=== PATIENT | female | born 1945 | race Caucasian/White ===

== ENCOUNTER 2020-04-25 12:00 | Outpatient (RCR) | payer MEDICARE, SELFPAY ==
[2013-03-23 17:10] VITALS: BMI 24.1
[2020-04-25] MEDS: COVID-19 VACC, MRNA(PFIZER)/PF 30 MCG/0.3 ML SYRINGE IM (13:24)
[2020-05-16] MEDS: COVID-19 VACC, MRNA(PFIZER)/PF 30 MCG/0.3 ML SYRINGE IM (13:41)
== END 2020-07-25 23:59 ==
LOC: IMMUN 12:00
PROVIDERS: Referring Provider Family Medicine; Visit Provider Family Medicine
DX: Z23 Encounter for immunization (principal)
CPT/HCPCS: 0001A; 0002A; 91300

== ENCOUNTER 2021-05-18 10:36 | Outpatient (CLI) | payer MEDICARE, SELFPAY ==
[2021-05-18 10:43] LABS: Bacteria 0 SEEN /hpf (None Seen); Mucous, Urine 0 SEEN /hpf (<or=2+); Red Blood Cells-Urine 0 SEEN /hpf (0-5); Squamous Epithelial Cells - UA 0 SEEN /hpf (5-10); White Blood Cells 0 SEEN /hpf (0-5)
[2021-05-18 12:11] LABS: Color, Urine Yellow (Yellow); Glucose, Dipstick Normal (Normal); Ketone-Dipstick Negative (Negative); Leukocyte Esterase-Dipstick 25 /ul (Negative); Nitrite-Dipstick Negative (Negative); Occult Blood-Urine Negative /ul (Negative); Protein-Dipstick Negative (Negative); Urine Bilirubin Dipstick Negative (Negative); Urine Clarity Clear (Clear); Urine Urobilinogen Normal (Normal)
[2021-05-18 12:18] LABS: Absolute Lymphocyte Count 0.72 X10^3/uL (0.83-4.51); Absolute Neutrophil Count 2.3 X10^3/uL (2.0-7.7); Basophil# 0.07 X10^3/uL; Eosinophil# 0.12 X10^3/uL; Eosinophils% 3.4 % (0-5); Hematocrit 42.9 % (37-47); Hemoglobin 14.2 g/dL (12.0-15.0); Lymphocyte # 0.72 X10^3/ul (0.83-4.51); Lymphocyte % 20.3 % (19-41); Mean Corp Hgb Conc 33.1 g/dL (32-36); Mean Corpuscular Hgb 31.8 pg (27.0-32.0); Mean Platelet Vol. 10.5 fl (6.2-12.0); Monocyte# 0.35 X10^3/uL; Monocyte% 9.9 % (0-10); NRBC Flagged by Analyzer 0 % (0-5); Neutrophil # 2.27 X10^3/uL (2.7-7.7); Neutrophil % 64.1 % (47-70); Platelet Count 246 K/mm3 (150-450); RBC Distribution Width CV 12.6 % (11.6-14.6); Red Blood Count 4.47 M/mm3 (4.2-5.4); White Blood Count 3.5 K/mm3 (4.4-11.0)
[2021-05-18 13:02] LABS: ALB/GLOB Ratio 1.1 RATIO (0.9-2.4); AST(SGOT) 26 U/L (15-37); Alanine Aminotransfer ALT/SGPT 36 U/L (13-56); Albumin, Serum 3.9 g/dL (3.2-5.0); Alkaline Phosphatase 162 U/L (45-117); Anion Gap 8 (5-15); BUN 18 mg/dL (7-18); BUN/Creat Ratio 25.8 RATIO (10-20); Calcium,Total 9.6 mg/dL (8.5-10.1); Chloride 102 mmol/L (98-107); EST Glomerular Filtration Rate 87 mL/min (>60); Est Glom Filt Rate - Afr Amer 105 mL/min (>60); Globulin 3.5 g/dL (2.2-4.2); Glucose 102 mg/dL (74-106); Magnesium 2.2 mg/dL (1.6-2.6); Potassium 3.7 mmol/L (3.5-5.1); Protein, Total 7.4 g/dL (6.4-8.2); Sodium Level 135 mmol/L (136-145); Thyroid Stim Hormone (TSH) 0.87 uIU/mL (0.358-3.74)
[2021-05-22 11:14] LABS: GGTP 308 U/L (5-55)
== END 2021-05-18 23:59 | disposition home or self-care (01) ==
LOC: MFPLAB 10:40
PROVIDERS: PCP Family Medicine; Referring Provider Family Medicine; Visit Provider Family Medicine
DX: R03.0 Elevated blood-pressure reading, without diagnosis of hypertension (principal); F41.9 Anxiety disorder, unspecified
CPT/HCPCS: 36415; 80053; 81001; 82977; 83735; 84443; 85025

== ENCOUNTER 2021-05-25 13:09 | Outpatient (CLI) | payer MEDICARE, SELFPAY ==
--- NOTE | 2021-05-25 13:12 | BI_ITS ---
MAMMOGRAPHY - BILATERAL SCREENING REASON FOR EXAM: Female, 75 years old. Routine annual screening examination. PERTINENT HISTORY: Non-contributory. TECHNIQUE: Digital bilateral breast sandra (3D mammographic acquisition) in the CC and MLO projections. 2-D mediolateral oblique (MLO) and craniocaudad (CC) views of both breasts were obtained. CAD: Full Field Digital Mammography with Computer Added Detection was performed. COMPARISON: None. Baseline examination. FINDINGS: Breast Composition: The breasts are heterogeneously dense, which may obscure small masses. There are no dominant masses or suspicious calcifications. No other significant abnormalities are identified. BI/SCRN MAMM (CAD)W/SANDRA BILAT IMPRESSION: Negative screening mammogram. Yearly followup mammogram recommended. (A) ASSESSMENT CATEGORY: BIRADS Category 1: Negative. A letter regarding these results will be sent to the patient by the facility within 30 days. Approximately 10% of breast cancers are not detected by mammography. A normal mammogram should not delay biopsy of a clinically suspicious abnormality. [id number] Electronically Signed: Aristeo Herring MD at 14:46 EDT ,
== END 2021-05-25 23:59 | disposition home or self-care (01) ==
LOC: OPBI 13:10
PROVIDERS: PCP Family Medicine; Visit Provider Family Medicine
DX: Z12.31 Encounter for screening mammogram for malignant neoplasm of breast (principal)
CPT/HCPCS: 77063; 77067

== ENCOUNTER 2021-06-01 09:33 | Outpatient (CLI) | payer MEDICARE, SELFPAY ==
--- NOTE | 2021-06-01 09:39 | US_ITS ---
STUDY: ABDOMINAL ULTRASOUND - RIGHT UPPER QUADRANT REASON FOR VISIT: Female, 75 years old ABNORMAL LEVELS OF SERUM ENZYMES TECHNIQUE: Ultrasound evaluation of the right upper quadrant was performed with real-time and static iraheta-scale imaging. TECHNICAL QUALITY: Adequate. COMPARISON: None. FINDINGS: Liver: The liver measures 13.8 cm. There is coarsened echogenicity of the liver. The bile ducts are within normal limits. There is hepatic color flow. The direction of portal flow is hepatopetal. There is a 3 cm x 4 cm x 2.8 cm cyst in the left lobe of the liver. Gallbladder: Normal distended gallbladder. The gallbladder wall measures 1.8 mm. There is a negative sonographic Carmona''s sign. There is no pericholecystic fluid. There are no gallstones. Common Bile Duct (C.B.D.): The common bile duct measures 2.6 mm. Pancreas: Normal size of the head, body and tail of the pancreas. There is increased echogenicity of the pancreas. There is no demonstrated pancreatic mass or cyst. Right Kidney: Normal size of the right kidney. The right kidney measures 9.3 cm x 5.1 cm x 3.8 cm. Normal renal cortex. The right cortex measures 1 cm. There is no demonstrated renal mass or cyst. There is no right hydronephrosis. US/Abdomen Limited IMPRESSION: Coarsened echotexture of the liver. This may represent a mild degree of fatty infiltration. Electronically Signed: Aristeo Herring MD at 11:18 EDT ,
== END 2021-06-01 23:59 | disposition home or self-care (01) ==
LOC: US 09:38
PROVIDERS: PCP Family Medicine; Referring Provider Family Medicine; Visit Provider Family Medicine
DX: R74.8 Abnormal levels of other serum enzymes (principal)
CPT/HCPCS: 76705

== ENCOUNTER 2021-07-03 05:44 | Day surgery (SDC) | payer MEDICARE, SELFPAY ==
[2021-07-03] VITALS (8 sets, daily range): BP systolic 122–175; BP diastolic 64–85; PULSE 65–76; RESP 16; TEMP 36.4–36.9; O2SAT 99–100; BMI 22.3
--- NOTE | 2021-07-03 06:29 | HP.PCM_ITS ---
HPI - General HPI Narrative SABA SALAZAR, is a 75 F who presents who presents via open access for screening colonoscopy. She has not had a previous one. She denies any acute bowel problems. No abdominal pain. No bright red blood per rectum or melena. She otherwise enjoys good health. [facility] Medical History (Updated 06/29/21 @ 15:03 by Nayeli Gonzalez) Alcohol use Arthritis Fatty liver Hx of fracture of wrist Non-smoker Wears glasses Home Medications calcium 1,200 mg PO DAILY 06/29/21 [History Last Taken Unknown] sertraline 50 mg PO QHS 06/29/21 [History Last Taken Unknown] Allergy/AdvReac Type Severity Reaction Status Date / Time No Known Allergies Allergy Verified 06/29/21 14:57 Surgical History (Updated 06/29/21 @ 15:03 by Nayeli Gonzalez) History of Social History Smoking Status: Never smoker ROS Constitutional Constitutional: Reports systems reviewed and no addt'l complaints, except as documented Cardiovascular Cardiovascular: Denies chest pain Respiratory/Chest Respiratory/Chest: Denies shortness of breath at rest Gastrointestinal Gastrointestinal: Denies abdominal pain, change in bowel habits, hematochezia or melena Physical Exam Const alert, oriented x3 and no apparent distress General Appearance: cooperative and comfortable HEENT HEENT Narrative: Left pupil dilated versus the right. Secondary to previous shingles Eyes General Eye: normal appearance of both eyes Neck General: normal visual inspection Chest inspection of chest normal Resp Effort and Inspection: able to speak in complete sentences and symmetric chest movement Auscultation: clear to auscultation bilaterally Cardio regular rate and regular rhythm GI soft to palpation, non-tender and non-distended Extremity no calf tenderness Neuro oriented x3 Psych thought process normal Assessment & Plan Assessment/Plan (1) Encounter for screening for malignant neoplasm of colon: PLAN: 75-year-old female presents for screening colonoscopy. She has not had a previous one. She presents via open access today. She is aware of the technique, benefit, risk, alternatives. She has had an opportunity to ask and have questions answered. We will proceed as noted. Marc Damico M.D., F.A.C.S.
[2021-07-03] MEDS: Lactated Ringers 1,000 ML 15 ML IV (06:35)
[2021-07-03] MEDS: Midazolam 5 MG/ML Syringe (07:15)
--- NOTE | 2021-07-03 07:38 | OP.COLON_ITS ---
Patient Name: Shirley See Procedure Date: 07/03/2021 7:03 AM Date of : 1945 Age: 75 Procedure: Colonoscopy Indications: Screening for colorectal malignant neoplasm Providers: Marc Damico MD Medicines: Midazolam 3 mg IV, Meperidine 100 mg IV Patient Profile: Last Colonoscopy: none. The patient's first colonoscopy is today. Complications: No immediate complications. Procedure: Pre-Anesthesia Assessment: - Prior to the procedure, a History and Physical was performed, and patient medications and allergies were reviewed. The patient's tolerance of previous anesthesia was also reviewed. The risks and benefits of the procedure and the sedation options and risks were discussed with the patient. All questions were answered, and informed consent was obtained. Prior Anticoagulants: The patient has taken no previous anticoagulant or antiplatelet agents. ASA Grade Assessment: II - A patient with mild systemic disease. After reviewing the risks and benefits, the patient was deemed in satisfactory condition to undergo the procedure. After I obtained informed consent, the scope was passed under direct vision. Throughout the procedure, the patient's blood pressure, pulse, and oxygen saturations were monitored continuously. The colonoscope was introduced through the anus and advanced to the cecum, identified by appendiceal orifice and ileocecal valve. The colonoscopy was performed without difficulty. The patient tolerated the procedure well. The quality of the bowel preparation was good. The ileocecal valve and the appendiceal orifice were photographed. Moderate Sedation: Moderate (conscious) sedation was personally administered by the endoscopist. The following parameters were monitored: oxygen saturation, heart rate, blood pressure, and response to care. Total physician intraservice time was 15 minutes. Scope In: 7:17:09 AM Scope Withdrawal Time 0 hours 9 minutes 0 seconds Scope Out: 7:32:51 AM Total Procedure Duration Time 0 hours 15 minutes 42 seconds Findings: The digital rectal exam findings include non-thrombosed external hemorrhoids, non-thrombosed internal hemorrhoids and internal hemorrhoids that prolapse with straining, but spontaneously regress to the resting position (Grade II). Multiple diverticula were found in the sigmoid colon and descending colon. The exam was otherwise without abnormality. Impression: - Non-thrombosed external hemorrhoids, non-thrombosed internal hemorrhoids and internal hemorrhoids that prolapse with straining, but spontaneously regress to the resting position (Grade II) found on digital rectal exam. - Diverticulosis in the sigmoid colon and in the descending colon. - The examination was otherwise normal. - No specimens collected. Recommendation: - Discharge patient to home. - Resume previous diet. - Continue present medications. - Repeat colonoscopy is not recommended due to current age (66 years or older) for screening purposes. Procedure Code(s): --- Professional --- 91530, Colonoscopy, flexible; diagnostic, including collection of specimen(s) by brushing or washing, when performed (separate procedure) 60488, 59, Moderate sedation services provided by the same physician or other qualified health acute care assistant performing the diagnostic or therapeutic service that the sedation supports, requiring the presence of an independent trained observer to assist in the monitoring of the patient's level of consciousness and physiological status; initial 15 minutes of intraservice time, patient age 5 years or older Diagnosis Code(s): --- Professional --- Z12.11, Encounter for screening for malignant neoplasm of colon K64.1, Second degree hemorrhoids K64.4, Residual hemorrhoidal skin tags K57.30, Diverticulosis of large intestine without perforation or abscess without bleeding CPT copyright 2017 [employer]. All rights reserved. The codes documented in this report are preliminary and upon dental hygiene teacher review may be revised to meet current compliance requirements. Marc Damico MD 07/03/2021 7:38:01 AM This report has been signed electronically. Number of Addenda: 0 Note Initiated On: 07/03/2021 7:03 AM
--- NOTE | 2021-07-03 07:38 | OP.CCLET_ITS ---
07/03/2021 Slade Tristan [address] [place] [address] Re : Colonoscopy procedure for Shirley See Dear Dr. Tristan This procedure was performed on Saturday, July 03, 2021. My impressions and recommendations are as follows: Impressions : - Non-thrombosed external hemorrhoids, non-thrombosed internal hemorrhoids and internal hemorrhoids that prolapse with straining, but spontaneously regress to the resting position (Grade II) found on digital rectal exam. - Diverticulosis in the sigmoid colon and in the descending colon. - The examination was otherwise normal. - No specimens collected. Recommendations : - Discharge patient to home. - Resume previous diet. - Continue present medications. - Repeat colonoscopy is not recommended due to current age (66 years or older) for screening purposes. My findings are described in the full procedure note, which is enclosed. If I can be of further assistance, please feel free to contact me at Doctor phone number(s): Work: . Sincerely, Marc Damico MD 07/03/2021 7:38:01 AM This report has been signed electronically.
== END 2021-07-03 08:18 | disposition home or self-care (01) ==
LOC: EN 05:45 → AC 05:46
PROVIDERS: PCP Family Medicine; Referring Provider Family Medicine; Visit Provider Surgery
PROC: 0DJD8ZZ Inspection of Lower Intestinal Tract, Via Natural or Artificial Opening Endoscopic (ICD-10-PCS; CPT 45378; principal; 2021-07-03 06:55)
DX: Z12.11 Encounter for screening for malignant neoplasm of colon (principal); K57.30 Diverticulosis of large intestine without perforation or abscess without bleeding; K64.4 Residual hemorrhoidal skin tags; K64.1 Second degree hemorrhoids; Z79.899 Other long term (current) drug therapy
CPT/HCPCS: 45378; 99152; 99153; J7120

== ENCOUNTER → 2021-09-06 | Outpatient (CLI) | payer MEDICARE, SELFPAY ==
[2021-09-06 12:15] LABS: Absolute Neutrophil Count 2.5 X10^3/uL (2.0-7.7); Basophil# 0.03 X10^3/uL; Basophil% 0.7 % (0-1); Eosinophil# 0.13 X10^3/uL; Eosinophils% 3.2 % (0-5); Hematocrit 42.5 % (37-47); Hemoglobin 14.1 g/dL (12.0-15.0); Lymphocyte % 22.4 % (19-41); Mean Corp Hgb Conc 33.2 g/dL (32-36); Mean Corpuscular Hgb 31.5 pg (27.0-32.0); Mean Corpuscular Volume 95.1 fL (81-99); Mean Platelet Vol. 10.6 fl (6.2-12.0); Monocyte# 0.45 X10^3/uL; Monocyte% 11.2 % (0-10); NRBC Flagged by Analyzer 0 % (0-5); Neutrophil % 62.3 % (47-70); Platelet Count 230 K/mm3 (150-450); RBC Distribution Width CV 13.2 % (11.6-14.6); RBC Distribution Width SD 46.8 fl (35.1-43.9); Red Blood Count 4.47 M/mm3 (4.2-5.4)
[2021-09-06 12:38] LABS: ALB/GLOB Ratio 1.1 RATIO (0.9-2.4); AST(SGOT) 78 U/L (15-37); Alanine Aminotransfer ALT/SGPT 99 U/L (13-56); Albumin, Serum 3.8 g/dL (3.2-5.0); Alkaline Phosphatase 233 U/L (45-117); Anion Gap 6 (5-15); BUN 22 mg/dL (7-18); BUN/Creat Ratio 31.8 RATIO (10-20); Calcium,Total 9.5 mg/dL (8.5-10.1); Chloride 99 mmol/L (98-107); Creatinine, Serum 0.69 mg/dL (0.55-1.02); EST Glomerular Filtration Rate 88 mL/min (>60); Est Glom Filt Rate - Afr Amer 106 mL/min (>60); GGTP 561 U/L (5-55); Globulin 3.5 g/dL (2.2-4.2); Glucose 97 mg/dL (74-106); Magnesium 2.2 mg/dL (1.6-2.6); Potassium 4.4 mmol/L (3.5-5.1); Protein, Total 7.3 g/dL (6.4-8.2); Sodium Level 133 mmol/L (136-145)
== END | disposition home or self-care (01) ==
LOC: MFPLAB 10:53
PROVIDERS: PCP Family Medicine; Referring Provider Family Medicine; Visit Provider Family Medicine
DX: R03.0 Elevated blood-pressure reading, without diagnosis of hypertension (principal); R74.8 Abnormal levels of other serum enzymes
CPT/HCPCS: 36415; 80053; 81001; 82977; 83735; 85025

== ENCOUNTER → 2021-09-12 | Outpatient (CLI) | payer MEDICARE, SELFPAY ==
[2021-09-12 15:32] LABS: Ferritin 113 ng/mL (8-252); Thyroid Stim Hormone (TSH) 0.77 uIU/mL (0.358-3.74)
[2021-09-14 14:09] LABS: ANTINUCLEAR ANTIBODIES DIRECT Negative (Negative)
[2021-09-14 16:19] LABS: Alpha Antitrypsin Serum 135 mg/dL (101-187)
[2021-09-15 07:08] LABS: Ceruloplasmin 25.5 mg/dL (19.0-39.0)
[2021-09-17 10:45] LABS: Anti-Smooth Muscle ABS 6 Units (0-19); Copper, Serum or Plasma 110 ug/dL (80-158)
== END | disposition home or self-care (01) ==
LOC: MFPLAB 11:47
PROVIDERS: PCP Family Medicine; Referring Provider Family Medicine; Visit Provider Family Medicine
DX: R79.89 Other specified abnormal findings of blood chemistry (principal); F41.9 Anxiety disorder, unspecified
CPT/HCPCS: 36415; 82103; 82390; 82525; 82728; 83516; 84443; 86038

== ENCOUNTER → 2021-12-04 | Outpatient (CLI) | payer MEDICARE, SELFPAY ==
[2021-12-04 12:52] LABS: Absolute Lymphocyte Count 0.82 X10^3/uL (0.83-4.51); Absolute Neutrophil Count 2.9 X10^3/uL (2.0-7.7); Basophil# 0.05 X10^3/uL; Basophil% 1.2 % (0-1); Eosinophil# 0.07 X10^3/uL; Eosinophils% 1.7 % (0-5); Hematocrit 40.9 % (37-47); Lymphocyte # 0.82 X10^3/ul (0.83-4.51); Lymphocyte % 19.4 % (19-41); Mean Corp Hgb Conc 31.8 g/dL (32-36); Mean Corpuscular Hgb 31.2 pg (27.0-32.0); Mean Corpuscular Volume 98.1 fL (81-99); Mean Platelet Vol. 11.1 fl (6.2-12.0); Monocyte# 0.43 X10^3/uL; Monocyte% 10.2 % (0-10); NRBC Flagged by Analyzer 0 % (0-5); Neutrophil # 2.85 X10^3/uL (2.7-7.7); Neutrophil % 67.3 % (47-70); Platelet Count 226 K/mm3 (150-450); RBC Distribution Width CV 13.1 % (11.6-14.6); RBC Distribution Width SD 46.6 fl (35.1-43.9); Red Blood Count 4.17 M/mm3 (4.2-5.4); White Blood Count 4.2 K/mm3 (4.4-11.0)
[2021-12-04 13:19] LABS: ALB/GLOB Ratio 1.1 RATIO (0.9-2.4); AST(SGOT) 36 U/L (15-37); Alanine Aminotransfer ALT/SGPT 38 U/L (13-56); Albumin, Serum 3.7 g/dL (3.2-5.0); Alkaline Phosphatase 227 U/L (45-117); Anion Gap 6 (5-15); BUN 23 mg/dL (7-18); BUN/Creat Ratio 34.4 RATIO (10-20); Calcium,Total 9.6 mg/dL (8.5-10.1); Chloride 102 mmol/L (98-107); Creatinine, Serum 0.67 mg/dL (0.55-1.02); EST Glomerular Filtration Rate 92 mL/min (>60); Est Glom Filt Rate - Afr Amer 111 mL/min (>60); Globulin 3.3 g/dL (2.2-4.2); Glucose 92 mg/dL (74-106); Potassium 4.4 mmol/L (3.5-5.1); Sodium Level 136 mmol/L (136-145)
[2021-12-05 11:34] LABS: GGTP 573 U/L (5-55)
== END | disposition home or self-care (01) ==
LOC: MFPLAB 11:14
PROVIDERS: PCP Family Medicine; Referring Provider Family Medicine; Visit Provider Family Medicine
DX: R03.0 Elevated blood-pressure reading, without diagnosis of hypertension (principal); R74.8 Abnormal levels of other serum enzymes; R73.09 Other abnormal glucose
CPT/HCPCS: 36415; 80053; 82977; 85025

== ENCOUNTER → 2022-07-02 | Outpatient (CLI) | payer MEDICARE, SELFPAY ==
[2022-07-02 10:07] LABS: Bacteria 0 SEEN /hpf (None Seen); Mucous, Urine 0 SEEN /hpf (<or=2+); Red Blood Cells-Urine 0 SEEN /hpf (0-5)
[2022-07-02 12:24] LABS: Absolute Lymphocyte Count 0.75 X10^3/uL (0.83-4.51); Absolute Neutrophil Count 2.4 X10^3/uL (2.0-7.7); Basophil# 0.05 X10^3/uL; Basophil% 1.3 % (0-1); Eosinophil# 0.13 X10^3/uL; Eosinophils% 3.4 % (0-5); Hematocrit 43.7 % (37-47); Hemoglobin 13.9 g/dL (12.0-15.0); Lymphocyte # 0.75 X10^3/ul (0.83-4.51); Lymphocyte % 19.7 % (19-41); Mean Corp Hgb Conc 31.8 g/dL (32-36); Mean Corpuscular Volume 97.5 fL (81-99); Monocyte# 0.46 X10^3/uL; Monocyte% 12.1 % (0-10); NRBC Flagged by Analyzer 0 % (0-5); Neutrophil # 2.39 X10^3/uL (2.7-7.7); Platelet Count 258 K/mm3 (150-450); RBC Distribution Width SD 46.9 fl (35.1-43.9); Red Blood Count 4.48 M/mm3 (4.2-5.4); White Blood Count 3.8 K/mm3 (4.4-11.0)
[2022-07-02 13:11] LABS: ALB/GLOB Ratio 1.1 RATIO (0.9-2.4); AST(SGOT) 67 U/L (15-37); Alanine Aminotransfer ALT/SGPT 61 U/L (13-56); Albumin, Serum 3.8 g/dL (3.2-5.0); Alkaline Phosphatase 236 U/L (45-117); Anion Gap 6 (5-15); BUN 23 mg/dL (7-18); BUN/Creat Ratio 32.7 RATIO (10-20); Calcium,Total 9.6 mg/dL (8.5-10.1); Chloride 100 mmol/L (98-107); EST Glomerular Filtration Rate 86 mL/min (>60); Est Glom Filt Rate - Afr Amer 104 mL/min (>60); GGTP 614 U/L (5-55); Globulin 3.4 g/dL (2.2-4.2); Glucose 101 mg/dL (74-106); Potassium 4.2 mmol/L (3.5-5.1); Protein, Total 7.2 g/dL (6.4-8.2); Sodium Level 133 mmol/L (136-145)
[2022-07-02 15:54] LABS: Color, Urine Yellow (Yellow); Glucose, Dipstick Normal (Normal); Ketone-Dipstick Negative (Negative); Leukocyte Esterase-Dipstick 25 /ul (Negative); Nitrite-Dipstick Negative (Negative); Occult Blood-Urine Negative /ul (Negative); Protein-Dipstick Negative (Negative); Urine Bilirubin Dipstick Negative (Negative); Urine Clarity Clear (Clear); Urine Urobilinogen Normal (Normal)
[2022-07-02 16:51] LABS: Squamous Epithelial Cells - UA 0-5 SEEN /hpf (5-10); White Blood Cells 0-5 SEEN /hpf (0-5)
== END | disposition home or self-care (01) ==
LOC: MFPLAB 10:02
PROVIDERS: PCP Family Medicine; Visit Provider Family Medicine
DX: I10 Essential (primary) hypertension (principal); R74.8 Abnormal levels of other serum enzymes
CPT/HCPCS: 36415; 80053; 81001; 82977; 85025

== ENCOUNTER → 2022-07-10 | Outpatient (CLI) | payer MEDICARE, SELFPAY ==
[2022-07-10 18:51] LABS: Ferritin 120 ng/mL (8-252); T4 Free Direct 1.07 ng/dL (0.76-1.46); Thyroid Stim Hormone (TSH) 0.99 uIU/mL (0.358-3.74)
[2022-07-10 19:02] LABS: Hepatitis B Surface Antibody Non-Reactive; Hepatitis B Surface Antigen Non-Reactive (Nonreactive); Hepatitis C Antibody Non-Reactive (Nonreactive)
[2022-07-12 16:10] LABS: ANTINUCLEAR ANTIBODIES DIRECT Negative (Negative); Alpha Antitrypsin Serum 148 mg/dL (101-187)
[2022-07-13 05:07] LABS: Anti-Smooth Muscle ABS 5 Units (0-19); Ceruloplasmin 28.5 mg/dL (19.0-39.0); Copper, Serum or Plasma 133 ug/dL (80-158); Cytoplasmic Ab (C-ANCA) <1:20 titer (Neg:<1:20); Perinuclear Ab (P-ANCA) <1:20 titer (Neg:<1:20)
== END | disposition home or self-care (01) ==
LOC: MFPLAB 16:58
PROVIDERS: PCP Family Medicine; Visit Provider Family Medicine
DX: R79.89 Other specified abnormal findings of blood chemistry (principal); Z79.899 Other long term (current) drug therapy
CPT/HCPCS: 36415; 82103; 82390; 82525; 82728; 83516; 84439; 84443; 86038; 86225; 86235; 86256; 86706; 86803; 87340

== ENCOUNTER → 2022-07-30 | Outpatient (CLI) | payer MEDICARE, SELFPAY ==
--- NOTE | 2022-07-30 14:43 | BI_ITS ---
MAMMOGRAPHY - BILATERAL SCREENING REASON FOR EXAM: Female, 76 years old. Routine annual screening examination. PERTINENT HISTORY: Non-contributory. TECHNIQUE: Digital bilateral breast sandra (3D mammographic acquisition) in the CC and MLO projections. 2-D mediolateral oblique (MLO) and craniocaudad (CC) views of both breasts were obtained. CAD: Full Field Digital Mammography with Computer Added Detection was performed. COMPARISON: Comparison is made with prior study of May 2020. FINDINGS: Breast Composition: The breasts are heterogeneously dense, which may obscure small masses. There are no dominant masses or suspicious calcifications. No other significant abnormalities are identified. There has been no significant change since the prior study. BI/SCRN MAMM (CAD)W/SANDRA BILAT IMPRESSION: Stable bilateral screening mammogram. Yearly follow-up mammogram recommended. (A) ASSESSMENT CATEGORY: BIRADS Category 1: Negative. A letter regarding these results will be sent to the patient by the facility within 30 days. Approximately 10% of breast cancers are not detected by mammography. A normal mammogram should not delay biopsy of a clinically suspicious abnormality. [id number] Electronically Signed: Aristeo Herring MD at 8:00 EDT ,
--- NOTE | 2022-07-30 14:50 | BD_ITS ---
STUDY: DUAL ENERGY X-RAY ABSORPTIOMETRY / DXA REASON FOR EXAM: Female, 76 years old. 627.8Menopausal postmenopausal BONE DENSITY REASON FOR EXAM TECHNIQUE: Bone Mineral Density (BMD) measurements of lumbar spine and bilateral hips were obtained. COMPARISON: None. FINDINGS: Lumbar Spine (L1-L4): g/cm2 (0.958) / T-score (-0.5) / Z-score (1.8) Findings are suggestive of normal bone density with a low fracture risk. Left Femur Total: g/cm2 (0.643) / T-score (-2.5) / Z-score (-0.6) Left Femoral Neck: g/cm2 (0.549) / T-score (-2.7) / Z-score (-0.6) Right Femur Total: g/cm2 (0.696) / T-score (-2.0) / Z-score (-0.2) Right Femoral Neck: g/cm2 (0.570) / T-score (-2.5) / Z-score (-0.4) BD/Dexa Bone Density Study IMPRESSION: The patient is considered osteoporotic as outlined below according to World [employer] Organization (WHO) criteria with a high fracture risk. Reference Information: The T-score is the number of standard deviations above or below the standard which is normal for young adults at their peak bone mineral density. The World Health Organization (WHO) interprets the T-scores as follows: Above -1 Normal bone density Between -1 and -2.5 Osteopenia Equal to / or below -2.5 Osteoporosis As a practical clinical guideline, osteopenia may be graded as follows: Mild -1 through -1.5 Moderate -1.6 through -2.0 Severe -2.1 through -2.4 The Z-score is the number of standard deviations above or below age-matched controls. A Z-score of less than -1.5 would be considered abnormal. References: 1. NIH Osteoporosis and Related Bone Diseases www osteo.org 2. International Society for Clinical Densitometry www iscd.org 3. National Osteoporosis Foundation www nof.org Electronically Signed: Aristeo Herring MD at 9:23 EDT ,
== END | disposition home or self-care (01) ==
LOC: OPBD 14:41
PROVIDERS: PCP Family Medicine; Visit Provider Family Medicine
DX: Z78.0 Asymptomatic menopausal state (principal); Z12.31 Encounter for screening mammogram for malignant neoplasm of breast
CPT/HCPCS: 77063; 77067; 77080

== ENCOUNTER → 2022-07-31 | Outpatient (CLI) | payer MEDICARE, SELFPAY ==
--- NOTE | 2022-07-31 10:31 | US_ITS ---
STUDY: ABDOMINAL ULTRASOUND REASON FOR EXAM: Female, 76 years old. Elevated liver enzymes. TECHNIQUE: Transabdominal ultrasound was performed with real-time and static iraheta scale imaging. TECHNICAL QUALITY: Adequate. COMPARISON: Abdominal ultrasound, June 01, 2021. FINDINGS: Liver: The liver measures 15.5 cm. There is a heterogeneous echogenicity of the liver. The bile ducts are within normal limits. There is hepatic color flow. The direction of portal flow is hepatopetal. There is a 3.3 x 3.8 x 3.0 cm simple cyst in the left liver. Gallbladder: Normal distended gallbladder. The gallbladder wall measures 2 mm. There is a negative sonographic Carmona''s sign. There is no pericholecystic fluid. There are no gallstones. Common Bile Duct (C.B.D.): The common bile duct measures 4 mm. Pancreas: Normal size of the head, body and tail of the pancreas. There is normal echogenicity of the pancreas. There is no demonstrated pancreatic mass or cyst. Spleen: Normal size of the spleen. The spleen measures 8.2 cm. Right Kidney: Normal size of the right kidney. The right kidney measures 8.9 cm. Normal renal cortex. The right cortex measures 1.2 cm. There is no demonstrated renal mass or cyst. There is no right hydronephrosis. Left Kidney: Normal size of the left kidney. The left kidney measures 9.9 cm. Normal renal cortex. The left cortex measures 1.3 cm. There is no demonstrated renal mass or cyst. There is no left hydronephrosis. Aorta: No abdominal aortic aneurysm. I.V.C.: The IVC is patent. There is no ascites. US/Abdomen Complete IMPRESSION: 1. Heterogeneous liver texture without focal mass. 2. Left hepatic cyst. This appears unchanged. 3. No evidence of acute intra-abdominal process or major interval change. Electronically Signed: Casa Montes DO at 20:08 EDT Reading Location ID and State: [facility] / [place] Tel [phone], Service support ,
== END | disposition home or self-care (01) ==
PROVIDERS: PCP Family Medicine; Referring Provider Family Medicine; Visit Provider Family Medicine
DX: R74.8 Abnormal levels of other serum enzymes (principal)
CPT/HCPCS: 76700

== ENCOUNTER → 2023-02-11 | Outpatient (CLI) | payer MEDICARE, SELFPAY ==
[2023-02-11 15:10] LABS: Absolute Lymphocyte Count 0.93 X10^3/uL (0.83-4.51); Absolute Neutrophil Count 3.2 X10^3/uL (2.0-7.7); Basophil# 0.05 X10^3/uL; Basophil% 1.1 % (0-1); Eosinophil# 0.09 X10^3/uL; Eosinophils% 1.9 % (0-5); Hemoglobin 13.2 g/dL (12.0-15.0); Lymphocyte # 0.93 X10^3/ul (0.83-4.51); Lymphocyte % 19.5 % (19-41); Mean Corp Hgb Conc 31.4 g/dL (32-36); Mean Corpuscular Hgb 30.9 pg (27.0-32.0); Mean Corpuscular Volume 98.4 fL (81-99); Monocyte# 0.46 X10^3/uL; Monocyte% 9.7 % (0-10); NRBC Flagged by Analyzer 0 % (0-5); Neutrophil # 3.22 X10^3/uL (2.7-7.7); Neutrophil % 67.6 % (47-70); Platelet Count 241 K/mm3 (150-450); RBC Distribution Width CV 13.2 % (11.6-14.6); RBC Distribution Width SD 47.6 fl (35.1-43.9); Red Blood Count 4.27 M/mm3 (4.2-5.4); White Blood Count 4.8 K/mm3 (4.4-11.0)
[2023-02-11 15:29] LABS: ALB/GLOB Ratio 1.2 RATIO (0.9-2.4); AST(SGOT) 27 U/L (15-37); Alanine Aminotransfer ALT/SGPT 37 U/L (13-56); Albumin, Serum 3.7 g/dL (3.2-5.0); Alkaline Phosphatase 175 U/L (45-117); Anion Gap 5 (5-15); BUN 26 mg/dL (7-18); BUN/Creat Ratio 41.3 RATIO (10-20); Calcium,Total 9.3 mg/dL (8.5-10.1); Chloride 103 mmol/L (98-107); Cholesterol 240 mg/dL (200); Creatinine, Serum 0.63 mg/dL (0.55-1.02); EST Glomerular Filtration Rate 98 mL/min (>60); Est Glom Filt Rate - Afr Amer 118 mL/min (>60); Globulin 3.2 g/dL (2.2-4.2); Glucose 94 mg/dL (74-106); High Density Lipoprotein 122 mg/dL; Potassium 4.1 mmol/L (3.5-5.1); Protein, Total 6.9 g/dL (6.4-8.2); Sodium Level 138 mmol/L (136-145); Thyroid Stim Hormone (TSH) 0.88 uIU/mL (0.358-3.74); Triglycerides 64 mg/dL; Very Low Density Lipoprotein 13 mg/dL (5-40)
[2023-02-12 16:37] LABS: GGTP 444 U/L (5-55)
== END | disposition home or self-care (01) ==
LOC: MFPLAB 13:33
PROVIDERS: PCP Family Medicine; Visit Provider Family Medicine
DX: M81.0 Age-related osteoporosis without current pathological fracture (principal); I10 Essential (primary) hypertension
CPT/HCPCS: 36415; 80053; 80061; 82306; 82977; 84443; 85025; 87086

== ENCOUNTER → 2023-07-10 | Outpatient (CLI) | payer MEDICARE, SELFPAY ==
[2023-07-10 12:26] LABS: Absolute Lymphocyte Count 1.03 X10^3/uL (0.83-4.51); Basophil# 0.07 X10^3/uL; Basophil% 1.8 % (0-1); Eosinophil# 0.23 X10^3/uL; Hematocrit 44.9 % (37-47); Hemoglobin 14.6 g/dL (12.0-15.0); Lymphocyte # 1.03 X10^3/ul (0.83-4.51); Lymphocyte % 26.9 % (19-41); Mean Corp Hgb Conc 32.5 g/dL (32-36); Mean Corpuscular Hgb 31.1 pg (27.0-32.0); Mean Corpuscular Volume 95.7 fL (81-99); Mean Platelet Vol. 11.1 fl (6.2-12.0); Monocyte# 0.46 X10^3/uL; NRBC Flagged by Analyzer 0 % (0-5); Neutrophil # 2.03 X10^3/uL (2.7-7.7); Platelet Count 243 K/mm3 (150-450); RBC Distribution Width CV 13.2 % (11.6-14.6); RBC Distribution Width SD 46.7 fl (35.1-43.9); Red Blood Count 4.69 M/mm3 (4.2-5.4); White Blood Count 3.8 K/mm3 (4.4-11.0)
[2023-07-10 12:37] LABS: Vitamin D,25 Hydroxy 43.6 ng/mL
[2023-07-10 12:52] LABS: ALB/GLOB Ratio 1.1 RATIO (0.9-2.4); AST(SGOT) 35 U/L (15-37); Alanine Aminotransfer ALT/SGPT 41 U/L (13-56); Albumin, Serum 3.9 g/dL (3.2-5.0); Alkaline Phosphatase 165 U/L (45-117); Anion Gap 9 (5-15); BUN 20 mg/dL (7-18); Calcium,Total 9.7 mg/dL (8.5-10.1); Chloride 102 mmol/L (98-107); Creatinine, Serum 0.64 mg/dL (0.55-1.02); EST Glomerular Filtration Rate 95 mL/min (>60); Est Glom Filt Rate - Afr Amer 115 mL/min (>60); Globulin 3.5 g/dL (2.2-4.2); Glucose 99 mg/dL (74-106); Potassium 4.3 mmol/L (3.5-5.1); Protein, Total 7.4 g/dL (6.4-8.2); Sodium Level 137 mmol/L (136-145)
[2023-07-11 10:06] LABS: GGTP 424 U/L (5-55)
== END | disposition home or self-care (01) ==
LOC: MFPLAB 09:51
PROVIDERS: PCP Family Medicine; Visit Provider Family Medicine
DX: M81.0 Age-related osteoporosis without current pathological fracture (principal); R74.8 Abnormal levels of other serum enzymes; I10 Essential (primary) hypertension
CPT/HCPCS: 36415; 80053; 82306; 82977; 85025

== ENCOUNTER → 2023-07-15 | Outpatient (CLI) | payer MEDICARE, SELFPAY ==
[2023-07-15 13:16] LABS: T4 Free Direct 1.03 ng/dL (0.76-1.46); Thyroid Stim Hormone (TSH) 1.81 uIU/mL (0.358-3.74)
[2023-07-17 07:08] LABS: Thyroglobulin Antibody < 1.0 IU/mL (0.0-0.9); Thyroid Peroxidase AB 24 IU/mL (0-34); Thyroid Stim Immunoglob <0.10 IU/L (0.00-0.55)
== END | disposition home or self-care (01) ==
LOC: MFPLAB 09:57
PROVIDERS: PCP Family Medicine; Visit Provider Family Medicine
DX: E01.0 Iodine-deficiency related diffuse (endemic) goiter (principal)
CPT/HCPCS: 36415; 84439; 84443; 84445; 86376; 86800

== ENCOUNTER → 2023-08-05 | Outpatient (CLI) | payer MEDICARE, SELFPAY ==
--- NOTE | 2023-08-05 09:01 | BI_ITS ---
MAMMOGRAPHY - BILATERAL SCREENING REASON FOR EXAM: Female, 77 years old. Routine annual screening examination. PERTINENT HISTORY: Non-contributory. TECHNIQUE: Digital bilateral breast sandra (3D mammographic acquisition) in the CC and MLO projections. 2-D mediolateral oblique (MLO) and craniocaudad (CC) views of both breasts were obtained. CAD: Full Field Digital Mammography with Computer Added Detection was performed. COMPARISON: Comparison is made with prior study dated July 30, 2022 and May 25, 2021. FINDINGS: Breast Composition: The breasts are heterogeneously dense, which may obscure small masses. There are no dominant masses or suspicious calcifications. No other significant abnormalities are identified. There has been no significant change since the prior study. BI/SCRN MAMM (CAD)W/SANDRA BILAT IMPRESSION: Stable bilateral screening mammogram. Yearly follow-up mammogram recommended. (A) ASSESSMENT CATEGORY: BIRADS Category 1: Negative. A letter regarding these results will be sent to the patient by the facility within 30 days. Approximately 10% of breast cancers are not detected by mammography. A normal mammogram should not delay biopsy of a clinically suspicious abnormality. [id number] Electronically Signed: Aristeo Herring MD at 9:44 EDT ,
== END | disposition home or self-care (01) ==
LOC: OPBI 09:01
PROVIDERS: PCP Family Medicine; Referring Provider Family Medicine; Visit Provider Family Medicine
DX: Z12.31 Encounter for screening mammogram for malignant neoplasm of breast (principal)
CPT/HCPCS: 77063; 77067

== ENCOUNTER → 2023-08-14 | Outpatient (CLI) | payer MEDICARE, SELFPAY ==
--- NOTE | 2023-08-14 12:21 | US_ITS ---
STUDY: THYROID ULTRASOUND REASON FOR EXAM: Female, 77 years old. Palpably enlarged thyroid TECHNIQUE: Ultrasound evaluation of the thyroid was performed with real-time and static iraheta-scale imaging. COMPARISON: None. FINDINGS: RIGHT LOBE: The right lobe of the thyroid gland measures 4.7 x 1.6 x 1.4 cm. There is a homogeneous echotexture. There is a solid 0.5 x 0.3 x 0.2 cm hypoechoic nodule and a simple 0.3 cm cyst. This nodule is solid or almost completely solid, hypoechoic, [id number], smoothly marginated and contains no echogenic foci. TI-RADS points: 4. TI-RADS category: TR4. This nodule is moderately suspicious but no FNA or follow-up is necessary given the small size of this nodule. LEFT LOBE: The left lobe of the thyroid gland measures 4.2 x 1.5 x 1.4 cm. There is a homogeneous echotexture. There are no demonstrated solid, cystic or complex lesions. ISTHMUS: The isthmus measures 0.2 cm. The regional lymph nodes are normal. There is a hyperechoic structure measuring 0.6 x 0.4 x 0.5 cm which may be an exophytic left thyroid nodule. US/Thyroid IMPRESSION: Normal-sized homogeneous thyroid gland without suspicious nodule. No specific follow-up needed. Electronically Signed: Santiago Gibbons MD at 23:43 EDT ,
== END | disposition home or self-care (01) ==
PROVIDERS: PCP Family Medicine; Referring Provider Family Medicine; Visit Provider Family Medicine
DX: E01.0 Iodine-deficiency related diffuse (endemic) goiter (principal)
CPT/HCPCS: 76536

== ENCOUNTER → 2024-01-14 | Outpatient (CLI) | payer MEDICARE, SELFPAY ==
[2024-01-14 10:38] LABS: Absolute Lymphocyte Count 1.03 X10^3/uL (0.83-4.51); Absolute Neutrophil Count 2.3 X10^3/uL (2.0-7.7); Basophil# 0.06 X10^3/uL; Basophil% 1.5 % (0-1); Eosinophil# 0.15 X10^3/uL; Eosinophils% 3.8 % (0-5); Hematocrit 40.8 % (37-47); Hemoglobin 13.5 g/dL (12.0-15.0); Lymphocyte # 1.03 X10^3/ul (0.83-4.51); Mean Corp Hgb Conc 33.1 g/dL (32-36); Mean Corpuscular Hgb 32.4 pg (27.0-32.0); Mean Corpuscular Volume 97.8 fL (81-99); Mean Platelet Vol. 10.7 fl (6.2-12.0); Monocyte# 0.45 X10^3/uL; Monocyte% 11.4 % (0-10); NRBC Flagged by Analyzer 0 % (0-5); Neutrophil # 2.26 X10^3/uL (2.7-7.7); Platelet Count 246 K/mm3 (150-450); RBC Distribution Width CV 13.1 % (11.6-14.6); RBC Distribution Width SD 46.7 fl (35.1-43.9); Red Blood Count 4.17 M/mm3 (4.2-5.4)
[2024-01-14 11:02] LABS: AST(SGOT) 35 U/L (15-37); Alanine Aminotransfer ALT/SGPT 39 U/L (13-56); Albumin, Serum 3.5 g/dL (3.2-5.0); Alkaline Phosphatase 183 U/L (45-117); Anion Gap 5 (5-15); BUN 27 mg/dL (7-18); BUN/Creat Ratio 38.9 RATIO (10-20); Chloride 107 mmol/L (98-107); Cholesterol 244 mg/dL (200); Creatinine, Serum 0.69 mg/dL (0.55-1.02); EST Glomerular Filtration Rate 87 mL/min (>60); Est Glom Filt Rate - Afr Amer 105 mL/min (>60); Globulin 3.4 g/dL (2.2-4.2); Glucose 100 mg/dL (74-106); High Density Lipoprotein 98 mg/dL; Magnesium 2.1 mg/dL (1.6-2.6); Potassium 4.2 mmol/L (3.5-5.1); Protein, Total 6.9 g/dL (6.4-8.2); Sodium Level 138 mmol/L (136-145); Triglycerides 79 mg/dL; Very Low Density Lipoprotein 16 mg/dL (5-40)
[2024-01-14 11:05] LABS: Vitamin D,25 Hydroxy 30.9 ng/mL
[2024-01-14 13:34] LABS: Bacteria 0 SEEN /hpf (None Seen); Mucous, Urine 0 SEEN /hpf (<or=2+); Red Blood Cells-Urine 0 SEEN /hpf (0-5); White Blood Cells 0 SEEN /hpf (0-5)
[2024-01-14 16:18] LABS: Color, Urine Yellow (Yellow); Glucose, Dipstick Normal (Normal); Ketone-Dipstick Negative (Negative); Leukocyte Esterase-Dipstick Negative /ul (Negative); Nitrite-Dipstick Negative (Negative); Occult Blood-Urine Negative /ul (Negative); Protein-Dipstick Negative (Negative); Specific Gravity, Urine 1.015 (1.002-1.030); Urine Bilirubin Dipstick Negative (Negative); Urine Clarity Clear (Clear); Urine Urobilinogen Normal (Normal)
[2024-01-14 16:55] LABS: Hemoglobin A1c 5.1 % (3.8-5.6)
[2024-01-14 17:01] LABS: Squamous Epithelial Cells - UA 0-5 SEEN /hpf (5-10)
== END | disposition home or self-care (01) ==
LOC: MFPLAB 09:35
PROVIDERS: PCP Family Medicine; Visit Provider Family Medicine
DX: R73.09 Other abnormal glucose (principal); I10 Essential (primary) hypertension; M81.0 Age-related osteoporosis without current pathological fracture
CPT/HCPCS: 36415; 80053; 80061; 81001; 82306; 83036; 83735; 85025

== ENCOUNTER → 2024-07-14 | Outpatient (CLI) | payer MEDICARE, SELFPAY ==
[2024-07-14 12:34] LABS: Absolute Lymphocyte Count 0.97 X10^3/uL (0.83-4.51); Absolute Neutrophil Count 3.5 X10^3/uL (2.0-7.7); Basophil# 0.08 X10^3/uL; Basophil% 1.6 % (0-1); Eosinophil# 0.08 X10^3/uL; Eosinophils% 1.6 % (0-5); Hematocrit 40.6 % (37-47); Hemoglobin 13.4 g/dL (12.0-15.0); Lymphocyte # 0.97 X10^3/ul (0.83-4.51); Lymphocyte % 18.9 % (19-41); Mean Corpuscular Hgb 31.9 pg (27.0-32.0); Mean Corpuscular Volume 96.7 fL (81-99); Mean Platelet Vol. 10.8 fl (6.2-12.0); Monocyte# 0.54 X10^3/uL; Monocyte% 10.5 % (0-10); NRBC Flagged by Analyzer 0 % (0-5); Neutrophil # 3.45 X10^3/uL (2.7-7.7); Platelet Count 269 K/mm3 (150-450); RBC Distribution Width CV 13.2 % (11.6-14.6); RBC Distribution Width SD 46.9 fl (35.1-43.9); White Blood Count 5.1 K/mm3 (4.4-11.0)
[2024-07-14 13:39] LABS: ALB/GLOB Ratio 1.6 RATIO (0.9-2.4); AST(SGOT) 36 U/L (<=31); Alanine Aminotransfer ALT/SGPT 35 U/L (<=34); Albumin, Serum 4.3 g/dL (3.4-4.8); Alkaline Phosphatase 179 U/L (35-104); Anion Gap 12 (5-15); BUN 27 mg/dL (4-19); BUN/Creat Ratio 42.2 RATIO (10-20); Calcium,Total 9.8 mg/dL (7.6-11.0); Carbon Dioxide 24.7 mmol/L (21.0-32.0); Chloride 100 mmol/L (98-108); Cholesterol 241 mg/dL (<=200); Creatinine, Serum 0.64 mg/dL (0.70-1.20); EST Glomerular Filtration Rate 91 (>60); Globulin 2.6 g/dL (2.2-4.2); Glucose 111 mg/dL (70-99); High Density Lipoprotein 103 mg/dL; Low Density Lipoprotein Calc. 122 mg/dL; Potassium 4.2 mmol/L (3.3-5.1); Protein, Total 6.9 g/dL (5.9-8.4); Sodium Level 137 mmol/L (133-145); Total Bilirubin 0.41 mg/dL (0.00-1.30); Triglycerides 81 mg/dL; Very Low Density Lipoprotein 16 mg/dL (5-40); Vitamin D,25 Hydroxy 41.9 ng/mL (30-100); cholesterol:hdl ratio screen 2.34
[2024-07-15 12:28] LABS: Hemoglobin A1c 5.3 % (<=5.6)
== END | disposition home or self-care (01) ==
LOC: MFPLAB 11:06
PROVIDERS: PCP Family Medicine; Referring Provider Family Medicine; Visit Provider Family Medicine
DX: R73.09 Other abnormal glucose (principal); I10 Essential (primary) hypertension; M81.0 Age-related osteoporosis without current pathological fracture
CPT/HCPCS: 36415; 80053; 80061; 82306; 83036; 85025

== ENCOUNTER → 2024-08-05 | Outpatient (CLI) | payer MEDICARE, SELFPAY ==
--- NOTE | 2024-08-05 13:18 | US_ITS ---
PROCEDURE: THYROID 08/05/2024 REASON FOR EXAM: NODULE TECHNIQUE: THYROID COMPARISON: Prior study dated August 14, 2023. FINDINGS: Right thyroid lobe size: 4.9 cm 2 cm 1.9 cm Left thyroid lobe size: 4.3 cm 1.6 cm 1.8 cm Isthmus: 0 0.22 cm Background parenchymal echotexture is homogeneous. Nodules: . Lobe: Right lobe, Location: Midpole, Size: 0.3 cm by 0.4 cm 0.3 cm, Stability: Stable Composition: Mixed cystic and solid (+1) Echogenicity: Hypoechoic (+2) Margin: Smooth (+0) Shape: Wider than tall (+0) Echogenic Foci: None (+0) TI-RADS: 3 . Lobe: Left, Location: Inferior pole, Size: 0.7 cm x 0.5 cm 0.4 cm, Stability: Stable Composition: Solid or almost completely solid (+2) Echogenicity: Hypoechoic (+2) Margin: Smooth (+0) Shape: Wider than tall (+0) Echogenic Foci: None (+0) TI-RADS: 4 US/Thyroid IMPRESSION: Stable examination. RECOMMENDATION: Based on most suspicious nodule. Nodule size = largest diameter Only evaluate nodule if =>5 mm. Growth > 20% in 2 dimensions = worsening. Follow up to 4 nodules. Recommend biopsy for no more than 2 nodules. Reading Location: [place] [address]
--- OUTSIDE RECORDS SUMMARY | 2024-08-05 13:58 | XMS RPT_ITS | CCD ---
Author Organization [facility] Care Team Providers Care Home Care Assistant Name Role Phone Dr. Slade Tristan Primary Care Provider [phone] Dr. Slade Tristan Referring Provider Dr. Marc Damico Attending Provider [phone] Dr. Marc Damico Other Provider Azalea SANCHEZ, Dr. Slade Campos Primary Care Provider Azalea SANCHEZ, Dr. Slade Campos Attending Provider [phone] Dr. Slade Tristan MD Referring Provider Slade Tristan Primary Care Unavailable Slade Tristan Attending Unavailable Slade Tristan Referring Unavailable Slade Tristan Primary Care Unavailable Slade Tristan Attending Unavailable Slade Tristan Referring Unavailable Slade Tristan Primary Care Unavailable Slade Tristan Attending Unavailable Slade Tristan Attending Unavailable Slade Tristan Referring Unavailable Slade Tristan Primary Care Unavailable Medications Current Medications Medication Drug Class(es) Dates Sig (Normalized) Sig (Original) Calcium (7 sources) Phosphate Binder, Calcium Start: 06-29-2021 take 2 capsules by mouth once daily Calcium 600 mg Capsule Active 1200 mg PO DAILY June 29, 2021 12:00am Start: 06-29-2021 take 1200 mg by mouth once akiko ly Calcium Active 1200 MG PO DAILY June 28, 2021 11:00pm Start: 06-29-2021 take 1200 mg by mouth once akiko ly Calcium Active 1200 MG PO DAILY June 29, 2021 12:00am sertraline 50 mg oral tablet (7 sources) Serotonin Reuptake Inhibitor Start: 06-29-2021 take 1 tablet by mouth at bedtime Sertraline 50 mg Tablet Active 50 mg PO AT BEDTIME June 29, 2021 12:00am Problems Problem Classification Problem Date Documented Da te Episodic/Chronic Diabetes mellitus without complication (1 source) Other abnormal glucose; Translations: [Other abnormal glucose] Onset: 07-19-2024 Episodic Open wounds of head; neck; and trunk (7 sources) Laceration - injury; Translations: [Laceration] 03-24-2013 Episodic Osteoporosis (1 source) Age-related osteoporosis without current pathological fracture; Translations: [Age-related osteoporosis without current pathological fracture] Onset: 08-05-2024 Chronic Other screening for suspected conditions (not mental disorders or infectious disease) (10 sources) Patient encounter status; Translations: [Encounter for screening for malignant neoplasm of colon] Onset: 08-05-2024 Episodic Thyroid disorders (1 source) Iodine-deficiency related diffuse (endemic) goiter; 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 Performed By: #### L 506.1001, [id number] #### [facility] [place], [address] Hemoglobin A1c percentageOrd ered By: Slade Tristan on 07-15-2024 HbA1c (Bld) [Mass fraction] 5.3 % <5.7 [facility] Comment on above: Normal < 5.7 % Predi abetic 5.7 - 6.4 % Diabetic >or= 6.5 % Please note range changes. Absolute lymphocyte countOrd ered By: Slade Tristan on 07-14-2024 Lymphocytes Auto (Unsp spec) [#/Vol] 0.97 10*3/uL 0.83-4.51 [facility] Absolute neutrophil countOrd ered By: Slade Tristan on 07-14-2024 Neutrophils (Bld) [#/Vol] 3.5 10*3/uL 2.0-7.7 [facility] Anion gap in Serum or Plasma Ordered By: Slade Tristan on 07-14-2024 Anion gap [Moles/Vol] 12 mmol/L 5- [facility] Automated lymphocyte count a s percentage of total leukocytesOrdered By: Slade Tristan on 07-14-2024 Lymphocytes/100 WBC Auto (Unsp spec) 18.9 % Low 19-41 [facility] BUN/creatinine ratioOrdered By: Slade Tristan on 07-14-2024 Urea nitrogen/Creatinine [Mass ratio] 42.2 mg/mg High 10- [facility] Basophil percentageOrdered B y: Slade Tristan on 07-14-2024 Basophils/100 WBC (Bld) 1.6 % High 0-1 [facility] Bilirubin, totalOrdered By: Slade Tristan on 07-14-2024 Bilirubin [Mass/Vol] 0.41 mg/dL 0.00-1.30 [facility] CBC W/Diff, Automatedon 06-18 Absolute Lymph 0.97 X10 3/uL Normal 0.83-4.51 [facility] Comment on above: Order Comment: ZABRINA Campos ADD A1C TO BLOOD DRAWN 07/14/24 PER Performed By: #### L 506.1001, [id number] #### [facility] [address] [place], [address] Absolute Neut 3.5 X10 3/uL Normal 2.0-7.7 [facility] Comment on above: Order Comment: ZABRINA Campos ADD A1C TO BLOOD DRAWN 07/14/24 PER Performed By: #### L 506.1001, [id number] #### [facility] [address] [place], [address] Basophils/100 WBC (Bld) 1.6 % High 0-1 [facility] Comment on above: Order Comment: ZABRINA Campos ADD A1C TO BLOOD DRAWN 07/14/24 PER Performed By: #### L 506.1001, [id number] #### [facility] [address] [place], [address] Eosinophils/100 WBC (Bld) 1.6 % Normal 0-5 [facility] Comment on above: Order Comment: PLEAS E ADD A1C TO BLOOD DRAWN 07/14/24 PER Performed By: #### L 506.1001, [id number] #### [facility] [address] [place], [address] Erythrocyte distribution width (RBC) [Ratio] 13.2 % Normal 11.6-14.6 [facility] Comment on above: Order Comment: PLEAS E ADD A1C TO BLOOD DRAWN 07/14/24 PER Performed By: #### L 506.1001, [id number] #### [facility] [address] [place], [address] Hematocrit (Bld) [Volume fraction] 40.6 % Normal 37-47 [facility] Comment on above: Order Comment: PLEAS E ADD A1C TO BLOOD DRAWN 07/14/24 PER Performed By: #### L 506.1001, [id number] #### [facility] [address] [place], [address] Hemoglobin (Bld) [Mass/Vol] 13.4 g/dL Normal 12.0-15. 0 [facility] Comment on above: Order Comment: PLEAS E ADD A1C TO BLOOD DRAWN 07/14/24 PER Performed By: #### L 506.1001, [id number] #### [facility] [address] [place], [address] IG% 0.400 Normal 0.0-0.9 [facility] Comment on above: Order Comment: PLEAS E ADD A1C TO BLOOD DRAWN 07/14/24 PER Result Comment: IG% - Immature Granulocytes (promyelocytes, myelocytes and metamyelocytes) > 1% indicates that a LEFT SHIFT is Present. Performed By: #### L 506.1001, [id number] #### [facility] [address] [place], [address] Lymphocytes/100 WBC (Bld) 18.9 % Low 19-41 [facility] Comment on above: Order Comment: PLEAS E ADD A1C TO BLOOD DRAWN 07/14/24 PER Performed By: #### L 506.1001, [id number] #### [facility] [address] [place], [address] MCH (RBC) [Entitic mass] 31.9 pg Normal 27.0-32.0 [facility] Comment on above: Order Comment: PLEAS E ADD A1C TO BLOOD DRAWN 07/14/24 PER Performed By: #### L 506.1001, [id number] #### [facility] [address] [place], [address] MCHC (RBC) [Mass/Vol] 33.0 g/dL Normal 32-36 [facility] Comment on above: Order Comment: PLEAS E ADD A1C TO BLOOD DRAWN 07/14/24 PER Performed By: #### L 506.1001, [id number] #### [facility] [address] [place], [address] MCV (RBC) [Entitic vol] 96.7 fL Normal 81-99 [facility] Comment on above: Order Comment: PLEAS E ADD A1C TO BLOOD DRAWN 07/14/24 PER Performed By: #### L 506.1001, [id number] #### [facility] [address] [place], [address] Monocytes/100 WBC (Bld) 10.5 % High 0-10 [facility] Comment on above: Order Comment: PLEAS E ADD A1C TO BLOOD DRAWN 07/14/24 PER Performed By: #### L 506.1001, [id number] #### [facility] [address] [place], [address] Neutrophils/100 WBC (Bld) 67.0 % Normal 47-70 [facility] Comment on above: Order Comment: PLEAS E ADD A1C TO BLOOD DRAWN 07/14/24 PER Performed By: #### L 506.1001, [id number] #### [facility] [address] [place], [address] Nucleated RBC (Bld) [#/Vol] 0 10*3/uL Normal 0-5 [facility] Comment on above: Order Comment: PLEAS E ADD A1C TO BLOOD DRAWN 07/14/24 PER Performed By: #### L 506.1001, L501.85 #### [facility] [address] [place], [address] Platelet mean volume (Bld) [Entitic vol] 10.8 fL Normal 6.2-12.0 [facility] Comment on above: Order Comment: PLEAS E ADD A1C TO BLOOD DRAWN 07/14/24 PER Performed By: #### L 506.1001, L501.85 #### [facility] [address] [place], [address] Platelets (Bld) [#/Vol] 269 10*3/uL Normal 150-450 [facility] Comment on above: Order Comment: PLEAS E ADD A1C TO BLOOD DRAWN 07/14/24 PER Performed By: #### L 506.1001, [id number] #### [facility] [address] [place], [address] RBC (Bld) [#/Vol] 4.20 10*6/uL Normal 4.2-5.4 [facility] Comment on above: Order Comment: PLEAS E ADD A1C TO BLOOD DRAWN 07/14/24 PER Performed By: #### L 506.1001, [id number] #### [facility] [address] [place], [place], [address] RDW SD 46.9 fl High 35.1-43.9 [facility] Comment on above: Order Comment: PLEAS E ADD A1C TO BLOOD DRAWN 07/14/24 PER Performed By: #### L 506.1001, [id number] #### [facility] [address] [place], [address] WBC (Bld) [#/Vol] 5.1 10*3/uL Normal 4.4-11.0 [facility] Comment on above: Order Comment: PLEAS E ADD A1C TO BLOOD DRAWN 07/14/24 PER Performed By: #### L 506.1001, [id number] #### [facility] [address] [place], [place], [address] Calculated very low density lipoprotein (VLDL) cholesterol measurementOrdered By: Slade Tristan on 07-14-2024 Calculated very low density lipoprotein (VLDL) cholesterol measurement 16 mg/dL 5-40 [facility] Carbon dioxide, total [Moles /volume] in Central venous bloodOrdered By: Slade Tristan on 07-14-2024 CO2 [Moles/Vol] 24.7 mmol/L 21.0-32.0 [facility] Chloride assayOrdered By: Kathleen Tristan on 07-14-2024 Chloride [Moles/Vol] 100 mmol/L 98-108 [facility] Comprehensive Metabolic Prof ilon 07-14-2024 Albumin [Mass/Vol] 4.3 g/dL Normal 3.4-4.8 [facility] Comment on above: Order Comment: PLEAS E ADD A1C TO BLOOD DRAWN 07/14/24 PER Performed By: #### L 506.1001, [id number] #### [facility] [address] [place], [address] Albumin/Globulin [Mass ratio] 1.6 {ratio} Normal 0.9-2.4 [facility] Comment on above: Order Comment: PLEAS E ADD A1C TO BLOOD DRAWN 07/14/24 PER Performed By: #### L 506.1001, [id number] #### [facility] [address] [place], [address] ALK PHOS 179 U/L High 35-104 [facility] Comment on above: Order Comment: PLEAS E ADD A1C TO BLOOD DRAWN 07/14/24 PER Performed By: #### L 506.1001, [id number] #### [facility] [address] [place], [address] ALT [Catalytic activity/Vol] 35 U/L Normal <=34 [facility] Comment on above: Order Comment: PLEAS E ADD A1C TO BLOOD DRAWN 07/14/24 PER Performed By: #### L 506.1001, [id number] #### [facility] [address] [place], [address] AST [Catalytic activity/Vol] 36 U/L High <=31 [facility] Comment on above: Order Comment: PLEAS E ADD A1C TO BLOOD DRAWN 07/14/24 PER Performed By: #### L 506.1001, [id number] #### [facility] [address] [place], [address] Bilirubin [Mass/Vol] 0.41 mg/dL Normal 0.00-1.30 [facility] Comment on above: Order Comment: PLEAS E ADD A1C TO BLOOD DRAWN 07/14/24 PER Performed By: #### L 506.1001, [id number] #### [facility] [address] [place], [address] BUN/CRE 42.2 RATIO High 10-20 [facility] Comment on above: Order Comment: PLEAS E ADD A1C TO BLOOD DRAWN 07/14/24 PER Performed By: #### L 506.1001, [id number] #### [facility] [address] [place], [address] Calcium [Mass/Vol] 9.8 mg/dL Normal 7.6-11.0 [facility] Comment on above: Order Comment: PLEAS E ADD A1C TO BLOOD DRAWN 07/14/24 PER Performed By: #### L 506.1001, [id number] #### [facility] [address] [place], [address] Chloride [Moles/Vol] 100 mmol/L Normal 98-108 [facility] Comment on above: Order Comment: PLEAS E ADD A1C TO BLOOD DRAWN 07/14/24 PER Performed By: #### L 506.1001, L501.85 #### [facility] [address] [place], [address] CO2 [Moles/Vol] 24.7 mmol/L Normal 21.0-32.0 [facility] Comment on above: Order Comment: PLEAS E ADD A1C TO BLOOD DRAWN 07/14/24 PER Performed By: #### L 506.1001, [id number] #### [facility] [address] [place], [address] Creatinine [Mass/Vol] 0.64 mg/dL Low 0.70-1.20 [facility] Comment on above: Order Comment: PLEAS E ADD A1C TO BLOOD DRAWN 07/14/24 PER Performed By: #### L 506.1001, [id number] #### [facility] [address] [place], [address] GAP 12 Normal 5-15 [facility] Comment on above: Order Comment: PLEAS E ADD A1C TO BLOOD DRAWN 07/14/24 PER Performed By: #### L 506.1001, [id number] #### [facility] [address] [place], [address] GFR/1.73 sq M.predicted among non-blacks MDRD (S/P/Bld) [Vol rate/Area] 91 mL/min/{1.73_m2} Normal >60 [facility] Comment on above: Order Comment: PLEAS E ADD A1C TO BLOOD DRAWN 07/14/24 PER Result Comment: mL/m in/1.73m2 CKD-EPI Creatinine Equation (2020) Performed By: #### L 506.1001, [id number] #### [facility] [address] [place], [address] Globulin (S) [Mass/Vol] 2.6 g/dL Normal 2.2-4.2 [facility] Comment on above: Order Comment: PLEAS E ADD A1C TO BLOOD DRAWN 07/14/24 PER Performed By: #### L 506.1001, [id number] #### [facility] [address] [place], [address] Glucose [Mass/Vol] 111 mg/dL High 70-99 [facility] Comment on above: Order Comment: PLEAS E ADD A1C TO BLOOD DRAWN 07/14/24 PER Performed By: #### L 506.1001, [id number] #### [facility] [address] [place], [address] Potassium [Moles/Vol] 4.2 mmol/L Normal 3.3-5.1 [facility] Comment on above: Order Comment: PLEAS E ADD A1C TO BLOOD DRAWN 07/14/24 PER Performed By: #### L 506.1001, [id number] #### [facility] [address] [place], [address] Sodium [Moles/Vol] 137 mmol/L Normal 133-145 [facility] Comment on above: Order Comment: ELSAAS E ADD A1C TO BLOOD DRAWN 07/14/24 PER Performed By: #### L 506.1001, [id number] #### [facility] [address] [place], [address] T PROT 6.9 g/dL Normal 5.9-8.4 [facility] Comment on above: Order Comment: ESLAAS E ADD A1C TO BLOOD DRAWN 07/14/24 PER Performed By: #### L 506.1001, [id number] #### [facility] [address] [place], [address] Urea nitrogen [Mass/Vol] 27 mg/dL High 4-19 [facility] Comment on above: Order Comment: ZABRINA Campos ADD A1C TO BLOOD DRAWN 07/14/24 PER Performed By: #### L 506.1001, [id number] #### [facility] [address] [place], [address] Eosinophil percentageOrdered By: Slade Tristan on 07-14-2024 Eosinophils/100 WBC (Bld) 1.6 % 0-5 [facility] Erythrocyte distribution wid th ratioOrdered By: Slade Tristan on 07-14-2024 Erythrocyte distribution width (RBC) [Ratio] 13.2 % 11.6-14.6 [facility] Erythrocyte distribution wid th standard deviationOrdered By: Slade Tristan on 07-14-2024 Erythrocyte distribution width (RBC) [Ratio] 46.9 fl High 35.1-43.9 [facility] Glomerular filtration rate ( GFR) estimation/1.73 sq m using serum, plasma, or whole bOrdered By: Slade Tristan on 07-14-2024 GFR/1.73 sq M.predicted among non-blacks MDRD (S/P/Bld) [Vol rate/Area] 91 mL/min/{1.73_m2} >60 [facility] Comment on above: mL/min/1.73m2 CKD-EP I Creatinine Equation (2020) Hematocrit Auto (Bld) [Volum e fraction]Ordered By: Slade Tristan on 07-14-2024 Hematocrit (Bld) [Volume fraction] 40.6 % 37-47 [facility] Hemoglobin measurementOrdere d By: Slade Tristan on 07-14-2024 Hemoglobin (Bld) [Mass/Vol] 13.4 g/dL 12.0-15. 0 [facility] Immature granulocytes/100 WB C Auto (Bld)Ordered By: Slade Tristan on 07-14-2024 Immature granulocytes/100 WBC (Bld) 0.400 % 0.0-0.9 [facility] Comment on above: IG% - Immature Granu locytes (promyelocytes, myelocytes and metamyelocytes) > 1% indicates that a LEFT SHIFT is Present. LDL calc ser/plasOrdered By: Slade Tristan on 07-14-2024 Cholesterol in LDL [Mass/Vol] 122 mg/dL [facility] Comment on above: Sldnxyeahz=142-919 m g/dL & Higher Zyhv=444 mg/dL or greater Laboratory - Chemistry and C hemistry - challengeOrdered By: Slade Tristan on 07-14-2024 AST [Catalytic activity/Vol] 36 U/L High <32 [facility] Lipid Profileon 07-14-2024 CHOL:HDL 2.34 Normal [facility] Comment on above: Order Comment: ZABRINA Campos ADD A1C TO BLOOD DRAWN 07/14/24 PER Performed By: #### L 506.1001, [id number] #### [facility] [address] [place], [place], [address] Cholesterol [Mass/Vol] 241 mg/dL High <=200 [facility] Comment on above: Order Comment: ZABRINA Campos ADD A1C TO BLOOD DRAWN 07/14/24 PER Result Comment: Chol esterol level, Desirable <200 mg/dL Borderline high cholesterol 200-239 mg/dL High cholesterol >=240 mg/dL Recommendations of the NCEP Adult Treatment Panel for the following risk-cutoff thresholds for the [place] population. Performed By: #### L 506.1001, [id number] #### [facility] [address] [place], [address] Cholesterol in HDL [Mass/Vol] 103 mg/dL Normal [facility] Comment on above: Order Comment: ZABRINA Campos ADD A1C TO BLOOD DRAWN 07/14/24 PER Result Comment: [place] Cholesterol Education Program (NCEP) guidelines: <40 mg/dL: Low HDL-cholesterol (major risk factor for CHD) >= 60 mg/dL: High HDL-cholesterol (negative risk factor for CHD) HDL-cholesterol is affected by a number of factors, e.g. smoking, exercise, hormones, sex and age. Performed By: #### L 506.1001, [id number] #### [facility] [address] [place], [address] Cholesterol in LDL [Mass/Vol] 122 mg/dL Normal [facility] Comment on above: Order Comment: ZABRINA Campos ADD A1C TO BLOOD DRAWN 07/14/24 PER Result Comment: Bord ejnkej=382-376 mg/dL Higher Xrkf=288 mg/dL or greater Performed By: #### L 506.1001, [id number] #### [facility] [address] [place], [address] Cholesterol in VLDL [Mass/Vol] 16 mg/dL Normal 5-40 [facility] Comment on above: Order Comment: ZABRINA Campos ADD A1C TO BLOOD DRAWN 07/14/24 PER Performed By: #### L 506.1001, [id number] #### [facility] [address] [place], [address] Triglyceride [Mass/Vol] 81 mg/dL Normal [facility] Comment on above: Order Comment: ZABRINA Campos ADD A1C TO BLOOD DRAWN 07/14/24 PER Result Comment: The drugs N-Acetylcysteine and Metamizole may falsely depress this assay. Normal range: <150 mg/dL Borderline High: 150-199 mg/dL High: 200-499 mg/dL Very High: >500 mg/dL Performed By: #### L 506.1001, [id number] #### [facility] [address] [place], [address] MCV (mean corpuscular volume ) determinationOrdered By: Slade Tristan on 07-14-2024 MCV (RBC) [Entitic vol] 96.7 fL 81-99 [facility] Mean corpuscular hemoglobin (MCH) determinationOrdered By: Slade Tristan on 07-14-2024 MCH (RBC) [Entitic mass] 31.9 pg 27.0-32.0 [facility] Mean corpuscular hemoglobin concentration (MCHC) determinationOrdered By: Slade Tristan on 07-14-2024 MCHC (RBC) [Mass/Vol] 33.0 g/dL 32-36 [facility] Mean platelet volume determi nationOrdered By: Slade Tristan on 07-14-2024 Platelet mean volume (Bld) [Entitic vol] 10.8 fL 6.2-12.0 [facility] Monocyte percentageOrdered B y: Slade Tristan on 07-14-2024 Monocytes/100 WBC (Bld) 10.5 % High 0-10 [facility] Neutrophil percentageOrdered By: Slade Tristan on 07-14-2024 Neutrophils/100 WBC (Bld) 67.0 % 47-70 [facility] Nucleated red blood cell per centageOrdered By: Slade Tristan on 07-14-2024 Nucleated RBC/100 WBC (Bld) [Ratio] 0 % 0-5 [facility] Platelet countOrdered By: Kathleen Tristan on 07-14-2024 Platelets (Bld) [#/Vol] 269 10*3/uL 150-450 [facility] Potassium measurement (mass/ volume)Ordered By: Slade Tristan on 07-14-2024 Potassium (Unsp spec) [Mass/Vol] 4.2 mmol/L 3.3-5.1 [facility] RBC Auto (Bld) [#/Vol]Ordere d By: Slade Tristan on 07-14-2024 RBC (Bld) [#/Vol] 4.20 10*6/uL 4.2-5.4 [facility] Screening total cholesterol/ high density lipoprotein (HDL) cholesterol ratioOrdered By: Slade Tristan on 07-14-2024 Cholesterol.total/Cholester ol in HDL [Mass ratio] 2.34 {ratio} [facility] Serum creatinine measurement (mass/volume)Ordered By: Slade Tristan on 07-14-2024 Creatinine [Mass/Vol] 0.64 mg/dL Low 0.70-1.20 [facility] Serum globulin measurementOr dered By: Slade Tristan on 07-14-2024 Globulin (S) [Mass/Vol] 2.6 g/dL 2.2-4.2 [facility] Serum glucose measurement (m ass/volume)Ordered By: Slade Tristan on 07-14-2024 Glucose [Mass/Vol] 111 mg/dL High 70-99 [facility] Serum or plasma alanine anthony otransferase (ALT) measurementOrdered By: Slade Tristan on 07-14-2024 ALT [Catalytic activity/Vol] 35 U/L <35 [facility] Serum or plasma albumin jese urement (mass/volume)Ordered By: Slade Tristan on 07-14-2024 Albumin [Mass/Vol] 4.3 g/dL 3.4-4.8 [facility] Serum or plasma albumin/glob ulin mass ratioOrdered By: Slade Tristan on 07-14-2024 Albumin/Globulin [Mass ratio] 1.6 {ratio} 0.9-2.4 [facility] Serum or plasma alkaline rowena sphatase measurementOrdered By: Slade Tristan on 07-14-2024 ALP [Catalytic activity/Vol] 179 U/L High 35-104 [facility] Serum or plasma calcium jese urement (mass/volume)Ordered By: Slade Tristan on 07-14-2024 Calcium [Mass/Vol] 9.8 mg/dL 7.6-11.0 [facility] Serum or plasma cholesterol in HDL measurement (mass/volume)Ordered By: Slade Tristan on 07-14-2024 Cholesterol in HDL [Mass/Vol] 103 mg/dL >40 [facility] Comment on above: National Cholesterol Education Program (NCEP) guidelines:<40 mg/dL: Low HDL-cholesterol (major risk factor for CHD)>= 60 mg/dL: High HDL-cholesterol (negative risk factor for CHD)HDL-cholesterol is affected by a number of factors, e.g. smoking, exercise, hormones, sex and age. Serum or plasma cholesterol measurement (mass/volume)Ordered By: Slade Tristan on 07-14-2024 Cholesterol [Mass/Vol] 241 mg/dL High <201 [facility] Comment on above: Cholesterol level, D esirable <200 mg/dLBorderline high cholesterol 200-239 mg/dLHigh cholesterol >=240 mg/dLRecommendations of the NCEP Adult Treatment Panel for the following risk-cutoff thresholds for the [place] population. Serum or plasma urea nitroge n measurement (mass/volume)Ordered By: Slade Tristan on 07-14-2024 Urea nitrogen [Mass/Vol] 27 mg/dL High 4-19 [facility] Sodium levelOrdered By: Slade Tristan on 07-14-2024 Sodium [Moles/Vol] 137 mmol/L 133-145 [facility] Total proteinOrdered By: Mal Tristan on 07-14-2024 Protein [Mass/Vol] 6.9 g/dL 5.9-8.4 [facility] Triglycerides measurementOrd ered By: Slade Tristan on 07-14-2024 Triglyceride [Mass/Vol] 81 mg/dL <199 [facility] Comment on above: The drugs N-Acetylcy steine and Metamizole may falsely depress this assay. Normal range: <150 mg/dLBorderline High: 150-199 mg/dLHigh: 200-499 mg/dLVery High: >500 mg/dL Vitamin D,25 Hydroxyon 07-14 Vitamin D 25-OH 41.9 ng/mL Normal 30-100 [facility] Comment on above: Order Comment: Order Date: 01/22/24 Order Info: [id number] - BMP Order Info: [id number] - CMP Order Info: [id number] - LIPID Result Comment: Dulce Maria min D Status Deficiency: <20 ng/mL (50nmol/L) Insufficiency: 20-30 ng/mL (50-75 nmol/L) Sufficiency: 30-100 ng/mL (75-250 nmol/L) Toxicity: >100 ng/mL (>250 nmol/L) Performed By: #### L 506.1001, L501.9985 #### [facility] [address] [place], [address] White blood cell (WBC) count Ordered By: Slade Tristan on 07-14-2024 WBC (Bld) [#/Vol] 5.1 10*3/uL 4.4-11.0 [facility] CBC W/Diff, Automatedon 11-2 Absolute Lymph 1.03 X10 3/uL Normal 0.83-4.51 [facility] Comment on above: Order Comment: Order Date: 07/15/23 Order Info: [id number] - CBCD Performed By: #### L 500.4050, L506.1000, L501.5200, L500.4100, L100.0100 #### [facility] [address] [place], [address] Absolute Neut 2.3 X10 3/uL Normal 2.0-7.7 [facility] Comment on above: Order Comment: Order Date: 07/15/23 Order Info: [id number] - CBCD Performed By: #### L 500.4050, L506.1000, L501.5200, L500.4100, L100.0100 #### [facility] [address] [place], [address] Basophils/100 WBC (Bld) 1.5 % High 0-1 [facility] Comment on above: Order Comment: Order Date: 07/15/23 Order Info: [id number] - CBCD Performed By: #### L 500.4050, L506.1000, L501.5200, L500.4100, L100.0100 #### [facility] [address] [place], [address] Eosinophils/100 WBC (Bld) 3.8 % Normal 0-5 [facility] Comment on above: Order Comment: Order Date: 07/15/23 Order Info: 0184-1 - CBCD Performed By: #### L 500.4050, L506.1000, L501.5200, L500.4100, L100.0100 #### [facility] [address] [place], [address] Erythrocyte distribution width (RBC) [Ratio] 13.1 % Normal 11.6-14.6 [facility] Comment on above: Order Comment: Order Date: 07/15/23 Order Info: 018- - CBCD Performed By: #### L 500.4050, L506.1000, L501.5200, L500.4100, L100.0100 #### [facility] [address] [place], [address] Hematocrit (Bld) [Volume fraction] 40.8 % Normal 37-47 [facility] Comment on above: Order Comment: Order Date: 07/15/23 Order Info: [id number] - CBCD Performed By: #### L 500.4050, L506.1000, L501.5200, L500.4100, L100.0100 #### [facility] [address] [place], [address] Hemoglobin (Bld) [Mass/Vol] 13.5 g/dL Normal 12.0-15. 0 [facility] Comment on above: Order Comment: Order Date: 07/15/23 Order Info: [id number] - CBCD Performed By: #### L 500.4050, L506.1000, L501.5200, L500.4100, L100.0100 #### [facility] [address] [place], [address] IG% 0.300 Normal 0.0-0.9 [facility] Comment on above: Order Comment: Order Date: 07/15/23 Order Info: 018- - CBCD Result Comment: IG% - Immature Granulocytes (promyelocytes, myelocytes and metamyelocytes) > 1% indicates that a LEFT SHIFT is Present. Performed By: #### L 500.4050, L506.1000, L501.5200, L500.4100, L100.0100 #### [facility] [address] [place], [address] Lymphocytes/100 WBC (Bld) 26.0 % Normal 19-41 [facility] Comment on above: Order Comment: Order Date: 07/15/23 Order Info: 018- - CBCD Performed By: #### L 500.4050, L506.1000, L501.5200, L500.4100, L100.0100 #### [facility] [address] [place], [address] MCH (RBC) [Entitic mass] 32.4 pg High 27.0-32.0 [facility] Comment on above: Order Comment: Order Date: 07/15/23 Order Info: [id number] - CBCD Performed By: #### L 500.4050, L506.1000, L501.5200, L500.4100, L100.0100 #### [facility] [address] [place], [address] MCHC (RBC) [Mass/Vol] 33.1 g/dL Normal 32-36 [facility] Comment on above: Order Comment: Order Date: 07/15/23 Order Info: 018- - CBCD Performed By: #### L 500.4050, L506.1000, L501.5200, L500.4100, L100.0100 #### [facility] [address] [place], [address] MCV (RBC) [Entitic vol] 97.8 fL Normal 81-99 [facility] Comment on above: Order Comment: Order Date: 07/15/23 Order Info: 018- - CBCD Performed By: #### L 500.4050, L506.1000, L501.5200, L500.4100, L100.0100 #### [facility] [address] [place], [address] Monocytes/100 WBC (Bld) 11.4 % High 0-10 [facility] Comment on above: Order Comment: Order Date: 07/15/23 Order Info: 0184-1 - CBCD Performed By: #### L 500.4050, L506.1000, L501.5200, L500.4100, L100.0100 #### [facility] [address] [place], [address] Neutrophils/100 WBC (Bld) 57.0 % Normal 47-70 [facility] Comment on above: Order Comment: Order Date: 07/15/23 Order Info: 0184-1 - CBCD Performed By: #### L 500.4050, L506.1000, L501.5200, L500.4100, L100.0100 #### [facility] [address] [place], [address] Nucleated RBC (Bld) [#/Vol] 0 10*3/uL Normal 0-5 [facility] Comment on above: Order Comment: Order Date: 07/15/23 Order Info: 0184-1 - CBCD Performed By: #### L 500.4050, L506.1000, L501.5200, L500.4100, L100.0100 #### [facility] [address] [place], [address] Platelet mean volume (Bld) [Entitic vol] 10.7 fL Normal 6.2-12.0 [facility] Comment on above: Order Comment: Order Date: 07/15/23 Order Info: 0184-1 - CBCD Performed By: #### L 500.4050, L506.1000, L501.5200, L500.4100, L100.0100 #### [facility] [address] [place], [address] Platelets (Bld) [#/Vol] 246 10*3/uL Normal 150-450 [facility] Comment on above: Order Comment: Order Date: 07/15/23 Order Info: 0184-1 - CBCD Performed By: #### L 500.4050, L506.1000, L501.5200, L500.4100, L100.0100 #### [facility] [address] [place], [address] RBC (Bld) [#/Vol] 4.17 10*6/uL Low 4.2-5.4 [facility] Comment on above: Order Comment: Order Date: 07/15/23 Order Info: 0184-1 - CBCD Performed By: #### L 500.4050, L506.1000, L501.5200, L500.4100, L100.0100 #### [facility] [address] [place], [address] RDW SD 46.7 fl High 35.1-43.9 [facility] Comment on above: Order Comment: Order Date: 07/15/23 Order Info: 0184-1 - CBCD Performed By: #### L 500.4050, L506.1000, L501.5200, L500.4100, L100.0100 #### [facility] [address] [place], [address] WBC (Bld) [#/Vol] 4.0 10*3/uL Low 4.4-11.0 [facility] Comment on above: Order Comment: Order Date: 07/15/23 Order Info: 0184-1 - CBCD Performed By: #### L 500.4050, L506.1000, L501.5200, L500.4100, L100.0100 #### [facility] [address] [place], [address] Comprehensive Metabolic Prof ilon 01-14-2024 Albumin [Mass/Vol] 3.5 g/dL Normal 3.2-5.0 [facility] Comment on above: Order Comment: Order Date: 07/15/23 Order Info: 0786-1 - CMP Order Info: [id number] - LIPID Order Info: [id number] - MG Performed By: #### L 500.4050, L506.1000, L501.5200, L500.4100, L100.0100 #### [facility] [address] [place], [address] Albumin/Globulin [Mass ratio] 1.0 {ratio} Normal 0.9-2.4 [facility] Comment on above: Order Comment: Order Date: 07/15/23 Order Info: [id number] - CMP Order Info: [id number] - LIPID Order Info: [id number] - MG Performed By: #### L 500.4050, L506.1000, L501.5200, L500.4100, L100.0100 #### [facility] [address] [place], [address] ALK P 183 U/L High 45-117 [facility] Comment on above: Order Comment: Order Date: 07/15/23 Order Info: [id number] - CMP Order Info: [id number] - LIPID Order Info: [id number] - MG Performed By: #### L 500.4050, L506.1000, L501.5200, L500.4100, L100.0100 #### [facility] [address] [place], [address] ALT [Catalytic activity/Vol] 39 U/L Normal 13-56 [facility] Comment on above: Order Comment: Order Date: 07/15/23 Order Info: 0786-1 - CMP Order Info: [id number] - LIPID Order Info: [id number] - MG Performed By: #### L 500.4050, L506.1000, L501.5200, L500.4100, L100.0100 #### [facility] [address] [place], [address] AST [Catalytic activity/Vol] 35 U/L Normal 15-37 [facility] Comment on above: Order Comment: Order Date: 07/15/23 Order Info: 0786- - CMP Order Info: [id number] - LIPID Order Info: [id number] - MG Performed By: #### L 500.4050, L506.1000, L501.5200, L500.4100, L100.0100 #### [facility] [address] [place], [address] Bilirubin [Mass/Vol] 0.40 mg/dL Normal 0.20-1.00 [facility] Comment on above: Order Comment: Order Date: 07/15/23 Order Info: 785- - CMP Order Info: [id number] - LIPID Order Info: [id number] - MG Result Comment: For patients on eltrombopag therapy, use of Dimension Flushing TBIL is not recommended. Performed By: #### L 500.4050, L506.1000, L501.5200, L500.4100, L100.0100 #### [facility] [address] [place], [address] BUN/CRE 38.9 RATIO High 10-20 [facility] Comment on above: Order Comment: Order Date: 07/15/23 Order Info: 0786 - CMP Order Info: [id number] - LIPID Order Info: [id number] - MG Performed By: #### L 500.4050, L506.1000, L501.5200, L500.4100, L100.0100 #### [facility] [address] [place], [address] CA,Total 9.0 mg/dL Normal 8.5-10.1 [facility] Comment on above: Order Comment: Order Date: 07/15/23 Order Info: 0786 - CMP Order Info: [id number] - LIPID Order Info: [id number] - MG Performed By: #### L 500.4050, L506.1000, L501.5200, L500.4100, L100.0100 #### [facility] [address] [place], [address] Chloride [Moles/Vol] 107 mmol/L Normal 98-107 [facility] Comment on above: Order Comment: Order Date: 07/15/23 Order Info: 785-1 - CMP Order Info: [id number] - LIPID Order Info: [id number] - MG Performed By: #### L 500.4050, L506.1000, L501.5200, L500.4100, L100.0100 #### [facility] [address] [place], [address] CO2 [Moles/Vol] 26.0 mmol/L Normal 21.0-32.0 [facility] Comment on above: Order Comment: Order Date: 07/15/23 Order Info: [id number] - CMP Order Info: - LIPID Order Info: [id number] - MG Performed By: #### L 500.4050, L506.1000, L501.5200, L500.4100, L100.0100 #### [facility] [address] [place], [address] Creatinine [Mass/Vol] 0.69 mg/dL Normal 0.55-1.02 [facility] Comment on above: Order Comment: Order Date: 07/15/23 Order Info: [id number] - CMP Order Info: [id number] - LIPID Order Info: [id number] - MG Result Comment: The validity of the calculated GFR GFRAA in patients over 70 years has not been determined. Clinical correlation is essential. Performed By: #### L 500.4050, L506.1000, L501.5200, L500.4100, L100.0100 #### [facility] [address] [place], [address] EST GFR - AA 105 mL/min Normal >60 [facility] Comment on above: Order Comment: Order Date: 07/15/23 Order Info: 1 - CMP Order Info: [id number] - LIPID Order Info: [id number] - MG Result Comment: Afri can Armenian GFR Calc Performed By: #### L 500.4050, L506.1000, L501.5200, L500.4100, L100.0100 #### [facility] [address] [place], [address] GAP 5 Normal 5-15 [facility] Comment on above: Order Comment: Order Date: 07/15/23 Order Info: [id number] - CMP Order Info: [id number] - LIPID Order Info: [id number] - MG Performed By: #### L 500.4050, L506.1000, L501.5200, L500.4100, L100.0100 #### [facility] [address] [place], [address] GFR/1.73 sq M.predicted among non-blacks MDRD (S/P/Bld) [Vol rate/Area] 87 mL/min/{1.73_m2} Normal >60 [facility] Comment on above: Order Comment: Order Date: 07/15/23 Order Info: 0786- - CMP Order Info: [id number] - LIPID Order Info: [id number] - MG Result Comment: Non- GFR Calc Performed By: #### L 500.4050, L506.1000, L501.5200, L500.4100, L100.0100 #### [facility] [address] [place], [address] Globulin (S) [Mass/Vol] 3.4 g/dL Normal 2.2-4.2 [facility] Comment on above: Order Comment: Order Date: 07/15/23 Order Info: [id number] - CMP Order Info: [id number] - LIPID Order Info: [id number] - MG Performed By: #### L 500.4050, L506.1000, L501.5200, L500.4100, L100.0100 #### [facility] [address] [place], [address] Glucose [Mass/Vol] 100 mg/dL Normal 74-106 [facility] Comment on above: Order Comment: Order Date: 07/15/23 Order Info: [id number] - CMP Order Info: [id number] - LIPID Order Info: [id number] - MG Result Comment: Fast ing Glucose result from 100 to 125 mg/dL suggests IMPAIRED HOMEOSTASIS per A.D.A. criteria. Performed By: #### L 500.4050, L506.1000, L501.5200, L500.4100, L100.0100 #### [facility] [address] [place], [address] Potassium [Moles/Vol] 4.2 mmol/L Normal 3.5-5.1 [facility] Comment on above: Order Comment: Order Date: 07/15/23 Order Info: 0786 - CMP Order Info: [id number] - LIPID Order Info: [id number] - MG Performed By: #### L 500.4050, L506.1000, L501.5200, L500.4100, L100.0100 #### [facility] [address] [place], [address] Sodium [Moles/Vol] 138 mmol/L Normal 136-145 [facility] Comment on above: Order Comment: Order Date: 07/15/23 Order Info: 0786- - CMP Order Info: [id number] - LIPID Order Info: [id number] - MG Performed By: #### L 500.4050, L506.1000, L501.5200, L500.4100, L100.0100 #### [facility] [address] [place], [address] T PROT 6.9 g/dL Normal 6.4-8.2 [facility] Comment on above: Order Comment: Order Date: 07/15/23 Order Info: 0786- - CMP Order Info: [id number] - LIPID Order Info: [id number] - MG Performed By: #### L 500.4050, L506.1000, L501.5200, L500.4100, L100.0100 #### [facility] [address] [place], [address] Urea nitrogen [Mass/Vol] 27 mg/dL High 7-18 [facility] Comment on above: Order Comment: Order Date: 07/15/23 Order Info: [id number] - CMP Order Info: [id number] - LIPID Order Info: [id number] - MG Performed By: #### L 500.4050, L506.1000, L501.5200, L500.4100, L100.0100 #### [facility] [address] [place], [address] Hemoglobin A1con 01-14-2024 HbA1c (Bld) [Mass fraction] 5.1 % Normal 3.8-5.6 [facility] Comment on above: Order Comment: ZABRINA Campos ADD A1C TO BLOOD DRAWN THIS AM PER Result Comment: Norm al < 5.7 % Prediabetic 5.7 - 6.4 % Diabetic >or= 6.5 % Please note range changes. Performed By: #### L 501.9985, L400.0001 #### [facility] [address] [place], [address] Lipid Profileon 01-14-2024 Cholesterol [Mass/Vol] 244 mg/dL High 200 [facility] Comment on above: Order Comment: Order Date: 07/15/23 Order Info: [id number] - CMP Order Info: [id number] - LIPID Order Info: [id number] - MG Result Comment: <200 mg/dL Desirable 200-240 mg/dL Borderline >240 mg/dL High Risk Performed By: #### L 500.4050, L506.1000, L501.5200, L500.4100, L100.0100 #### [facility] [address] [place], [address] Cholesterol in HDL [Mass/Vol] 98 mg/dL Normal [facility] Comment on above: Order Comment: Order Date: 07/15/23 Order Info: [id number] - CMP Order Info: [id number] - LIPID Order Info: [id number] - MG Result Comment: The drugs N-Acetylcysteine and Metamizole may falsely depress this assay. Reference Range HDL <40 mg/dL Low HDL Cholesterol HDL >or= 60 mg/dL High HDL Cholesterol Performed By: #### L 500.4050, L506.1000, L501.5200, L500.4100, L100.0100 #### [facility] [address] [place], [address] Cholesterol in LDL [Mass/Vol] 130 mg/dL Normal 0-130 [facility] Comment on above: Order Comment: Order Date: 07/15/23 Order Info: [id number] - CMP Order Info: [id number] - LIPID Order Info: [id number] - MG Performed By: #### L 500.4050, L506.1000, L501.5200, L500.4100, L100.0100 #### [facility] [address] [place], [address] Cholesterol in VLDL [Mass/Vol] 16 mg/dL Normal 5-40 [facility] Comment on above: Order Comment: Order Date: 07/15/23 Order Info: [id number] - CMP Order Info: [id number] - LIPID Order Info: [id number] - MG Performed By: #### L 500.4050, L506.1000, L501.5200, L500.4100, L100.0100 #### [facility] [address] [place], [address] Triglyceride [Mass/Vol] 79 mg/dL Normal [facility] Comment on above: Order Comment: Order Date: 07/15/23 Order Info: [id number] - CMP Order Info: [id number] - LIPID Order Info: [id number] - MG Result Comment: The drugs N-Acetylcysteine and Metamizole may falsely depress this assay. Serum Triglycerides Reference Interval Normal <150 mg/dL Borderline high 150 - 199 mg/dL High 200 - 499 mg/dL Very High > or = 500 mg/dL Performed By: #### L 500.4050, L506.1000, L501.5200, L500.4100, L100.0100 #### [facility] [address] [place], [address] Magnesiumon 01-14-2024 Magnesium [Mass/Vol] 2.1 mg/dL Normal 1.6-2.6 [facility] Comment on above: Order Comment: Order Date: 07/15/23 Order Info: [id number] - CMP Order Info: [id number] - LIPID Order Info: [id number] - MG Performed By: #### L 500.4050, L506.1000, L501.5200, L500.4100, L100.0100 #### [facility] [address] [place], [address] Urinalysis, Completeon 01-13 EPI,SQUAMOUS 0-5 SEEN Normal 5-10 [facility] Comment on above: Order Comment: CLEAN CATCH Result Comment: UTO Performed By: #### L 501.9985, L400.0001 #### [facility] [address] [place], [address] BACTERIA 0 SEEN Normal None Seen [facility] Comment on above: Order Comment: CLEAN CATCH Result Comment: UTO Performed By: #### L 501.9985, L400.0001 #### [facility] [address] [place], [address] Mucus Ql (Urine sed) 0 SEEN Normal [facility] Comment on above: Order Comment: CLEAN CATCH Result Comment: UTO Performed By: #### L 501.9985, L400.0001 #### [facility] [address] [place], [address] RBC 0 SEEN Normal 0-5 [facility] Comment on above: Order Comment: CLEAN CATCH Result Comment: UTO Performed By: #### L 501.9985, L400.0001 #### [facility] [address] [place], [address] WBC 0 SEEN Normal 0-5 [facility] Comment on above: Order Comment: CLEAN CATCH Result Comment: UTO Performed By: #### L 501.9985, L400.0001 #### [facility] [address] [place], [place], [address] Vitamin D,25 Hydroxyon 01-13 Vitamin D 25-OH 30.9 ng/mL Normal [facility] Comment on above: Order Comment: Order Date: 07/15/23 Order Info: [id number] - VITD25 Result Comment: Dulce Maria min D 25(OH) Status Range Deficiency <20 ng/mL (50nmol/L) Insufficiency 20 - 30 ng/mL (50 - 75 nmol/L) Sufficiency 30 - 100 ng/mL (75 - 250 nmol/L) Toxicity >100 ng/mL (>250 nmol/L) Performed By: #### L 500.4050, L506.1000, L501.5200, L500.4100, L100.0100 #### [facility] [address] [place], [place], [address] Thyroidon 08-14-[address] [facility] [address] [place], [place] [address] Thyroid MR#: [id number] Acct: [id number] Name: SHIRLEY SEE Rep #: [id number] : 1945 F [id number] From: Rashid Gibbons MD PCP: Dr. Slade Tristan MD Status: REG CLI Study: Thyroid Date of Exam: 08/14/23 Exam# [id number] Ordering Dr: Slade Tristan MD [id number] STUDY: THYROID ULTRASOUND REASON FOR EXAM: Female, 77 years old. Palpably enlarged thyroid TECHNIQUE: Ultrasound evaluation of the thyroid was performed with real-time and static iraheta-scale imaging. COMPARISON: None. FINDINGS: RIGHT LOBE: The right lobe of the thyroid gland measures 4.7 x 1.6 x 1.4 cm. There is a homogeneous echotexture. There is a solid 0.5 x 0.3 x 0.2 cm hypoechoic nodule and a simple 0.3 cm cyst. This nodule is solid or almost completely solid, hypoechoic, maclm-ihxl-oytn, smoothly marginated and contains no echogenic foci. TI-RADS points: 4. TI-RADS category: TR4. This nodule is moderately suspicious but no FNA or follow-up is necessary given the small size of this nodule. LEFT LOBE: The left lobe of the thyroid gland measures 4.2 x 1.5 x 1.4 cm. There is a homogeneous echotexture. There are no demonstrated solid, cystic or complex lesions. ISTHMUS: The isthmus measures 0.2 cm. The regional lymph nodes are normal. There is a hyperechoic structure measuring 0.6 x 0.4 x 0.5 cm which may be an exophytic left thyroid nodule. US/Thyroid IMPRESSION: Normal-sized homogeneous thyroid gland without suspicious nodule. No specific follow-up needed. Electronically Signed: Santiago Gibbons MD at 23:43 EDT , CC: Dr. Slade Tristan MD Roustabout: Signed Normal [facility] Absolute lymphocyte countOrd ered By: Slade Tristan on 02-11-2023 Lymphocytes Auto (Unsp spec) [#/Vol] 0.93 10*3/uL 0.83-4.51 [facility] Basophil percentageOrdered B y: Slade Tristan on 02-11-2023 Basophils/100 WBC (Bld) 1.1 % 0-1 [facility] Bilirubin [Mass/Vol] 0.50 mg/dL 0.20-1.00 [facility] Comment on above: For patients on eltr ombopag therapy, use of Dimension Flushing TBIL is not recommended. Chloride [Moles/Vol] 103 mmol/L 98-107 [facility] Cholesterol [Mass/Vol] 240 mg/dL <200 [facility] Comment on above: <200 mg/dL Desirable 200-240 mg/dL Borderline >240 mg/dL High Risk Eosinophils/100 WBC (Bld) 1.9 % 0-5 [facility] Glucose [Mass/Vol] 94 mg/dL 74-106 [facility] Neutrophils (Bld) [#/Vol] 3.2 10*3/uL 2.0-7.7 [facility] Neutrophils/100 WBC (Bld) 67.6 % 47-70 [facility] Potassium [Moles/Vol] 4.1 mmol/L 3.5-5.1 [facility] Protein [Mass/Vol] 6.9 g/dL 6.4-8.2 [facility] Sodium [Moles/Vol] 138 mmol/L 136-145 [facility] Triglyceride [Mass/Vol] 64 mg/dL <199 [facility] Comment on above: The drugs N-Acetylcy steine and Metamizole may falsely depress this assay.Serum Triglycerides Reference Interval Normal <150 mg/dL Borderline high 150 - 199 mg/dL High 200 - 499 mg/dL Very High > or = 500 mg/dL WBC (Bld) [#/Vol] 4.8 10*3/uL 4.4-11.0 [facility] Blood erythrocytes count (nu mber/volume)Ordered By: Slade Tristan on 02-11-2023 RBC (Bld) [#/Vol] 4.27 10*6/uL 4.2-5.4 [facility] Blood hemoglobin measurement (mass/volume)Ordered By: Slade Tristan on 02-11-2023 Hemoglobin (Bld) [Mass/Vol] 13.2 g/dL 12.0-15. 0 [facility] Blood lymphocytes/100 leukoc ytesOrdered By: Slade Tristan on 02-11-2023 Lymphocytes/100 WBC (Bld) 19.5 % 19-41 [facility] Blood monocytes/100 leukocyt esOrdered By: Slade Tristan on 02-11-2023 Monocytes/100 WBC (Bld) 9.7 % 0-10 [facility] Blood platelet mean volumeOr dered By: Slade Tristan on 02-11-2023 Platelet mean volume (Bld) [Entitic vol] 11.0 fL 6.2-12.0 [facility] Culture, urineOrdered By: Kathleen Tristan on 02-11-2023 Bacteria identified Cx Nom (U) Culture exhibits no growth. [facility] Determination of erythrocyte mean corpuscular volume (MCV)Ordered By: Slade Tristan on 02-11-2023 MCV (RBC) [Entitic vol] 98.4 fL 81-99 [facility] Hematocrit Auto (Bld) [Volum e fraction]Ordered By: Slade Tristan on 02-11-2023 Hematocrit (Bld) [Volume fraction] 42.0 % 37-47 [facility] Laboratory - Chemistry and C hemistry - challengeOrdered By: Slade Tristan on 02-11-2023 ALP [Catalytic activity/Vol] 175 U/L 45-117 [facility] ALT [Catalytic activity/Vol] 37 U/L 13-56 [facility] Amylase [Catalytic activity/Vol] 444 U/L 5-55 [facility] CO2 [Moles/Vol] 30.0 mmol/L 21.0-32.0 [facility] Globulin (S) [Mass/Vol] 3.2 g/dL 2.2-4.2 [facility] Urea nitrogen/Creatinine [Mass ratio] 41.3 mg/mg 10-20 [facility] - Hematology and Cell countsOrdered By: Slade Tristan on 02-11-2023 Erythrocyte distribution width (RBC) [Entitic vol] 47.6 fL 35.1-43.9 [facility] Erythrocyte distribution width (RBC) [Ratio] 13.2 % 11.6-14.6 [facility] Immature granulocytes/100 WBC (Bld) 0.200 % 0.0-0.9 [facility] Comment on above: IG% - Immature Granu locytes (promyelocytes, myelocytes and metamyelocytes) > 1% indicates that a LEFT SHIFT is Present. MCH (RBC) [Entitic mass] 30.9 pg 27.0-32.0 [facility] Nucleated RBC/100 WBC (Bld) [Ratio] 0 % 0-5 [facility] MCHC Auto (RBC) [Mass/Vol]Or dered By: Slade Tristan on 02-11-2023 MCHC (RBC) [Mass/Vol] 31.4 g/dL 32-36 [facility] No Panel InformationOrdered By: Slade Tristan on 02-11-2023 Estimated GFR (MDRD) Amer 118 mL/min >60 [facility] Comment on above: GFR Calc Estimated GFR (MDRD) Non-Af Amer 98 mL/min >60 [facility] Comment on above: Non- GFR Calc Thyroid Stimulating Hormone (TSH) 0.88 uIU/mL 0.358-3.74 [facility] Vitamin D 25-Hydroxy 36.0 ng/mL [facility] Comment on above: Vitamin D 25(OH) Sta tus Range Deficiency <20 ng/mL (50nmol/L) Insufficiency 20 - 30 ng/mL (50 - 75 nmol/L) Sufficiency 30 - 100 ng/mL (75 - 250 nmol/L) Toxicity >100 ng/mL (>250 nmol/L) Platelets bldOrdered By: Mal Tristan on 02-11-2023 Platelets (Bld) [#/Vol] 241 10*3/uL 150-450 [facility] Serum or plasma albumin jese urement (mass/volume)Ordered By: Slade Tristan on 02-11-2023 Albumin [Mass/Vol] 3.7 g/dL 3.2-5.0 [facility] Serum or plasma albumin/glob ulin mass ratioOrdered By: Slade Tristan on 02-11-2023 Albumin/Globulin [Mass ratio] 1.2 {ratio} 0.9-2.4 [facility] Serum or plasma calcium jese urement (mass/volume)Ordered By: Slade Tristan on 02-11-2023 Calcium [Mass/Vol] 9.3 mg/dL 8.5-10.1 [facility] Serum or plasma cholesterol in HDL measurement (mass/volume)Ordered By: Slade Tristan on 02-11-2023 Cholesterol in HDL [Mass/Vol] 122 mg/dL >40 [facility] Comment on above: The drugs N-Acetylcy steine and Metamizole may falsely depress this assay. Reference Range HDL <40 mg/dL Low HDL Cholesterol HDL >or= 60 mg/dL High HDL Cholesterol Serum or plasma cholesterol in VLDL measurement (mass/volume)Ordered By: Slade Tristan on 02-11-2023 Cholesterol in VLDL [Mass/Vol] 13 mg/dL 5-40 [facility] Serum or plasma creatinine m easurement (mass/volume)Ordered By: Slade Tristan on 02-11-2023 Creatinine [Mass/Vol] 0.63 mg/dL 0.55-1.02 [facility] Comment on above: The validity of the calculated GFR & GFRAA in patients over 70 years has not been determined. Clinical correlation is essential. Serum or plasma low density lipoprotein (LDL) cholesterol measurement (mass/volume)Ordered By: Slade Tristan on 02-11-2023 Cholesterol in LDL [Mass/Vol] 105 mg/dL 0-130 [facility] Serum or plasma urea nitroge n measurement (mass/volume)Ordered By: Slade Tristan on 02-11-2023 Urea nitrogen [Mass/Vol] 26 mg/dL 7-18 [facility] Thin prep Papanicolaou smear with manual screeningOrdered By: Slade Tristan on 02-11-2023 Thin prep Papanicolaou smear with manual screening 27 U/L 15-37 [facility] Thin prep Papanicolaou smear with manual screening 5 5-15 [facility] Atypical perinuclear antineu trophil cytoplasmic antibodies measurementOrdered By: Dr. Tristan on 07-10-2022 Neutrophil cytoplasmic Ab.perinuclear.atypical IF (S) [Titer] <1:20 titer Neg:<1:20 [facility] Comment on above: The atypical pANCA p attern has been observed in asignificant percentage of patients with ulcerative colitis,primary sclerosing cholangitis and autoimmune hepatitis. Basophil percentageOrdered B y: Dr. Tristan on 07-10-2022 Basophil percentage Not Reportable [facility] Laboratory - Chemistry and C hemistry - challengeOrdered By: Dr. Tristan on 07-10-2022 Free T4 [Mass/Vol] 1.07 ng/dL 0.76-1.46 [facility] No Panel InformationOrdered By: Dr. Tristan on 07-10-2022 Anti-Nuclear Antibody Screen Negative Negative [facility] Centromere B Antibody Not Reportable [facility] Ceruloplasmin 28.5 mg/dL 19.0-39.0 [facility] Hepatitis B Surface Antigen Non-Reactive Nonrea ctive [facility] Hepatitis C Antibody Non-Reactive Nonreactive [facility] Comment on above: Non Reactive: < 0.8 Equivocal: >/= 0.8 to < 1.0 Reactive: >/= 1.0The CDC recommends that a reactive/equivocal HCV antibody result be followed up by the HCV Nucleic Acid Amplificationtest (733025) FIRST COOK Antibody Not Reportable [facility] Thyroid Stimulating Hormone (TSH) 0.99 uIU/mL 0.358-3.74 [facility] Serum DNA double strand anti body assay (units/volume)Ordered By: Dr. Tristan on 07-10-2022 DNA double strand Ab Qn (S) Not Reportable [facility] Serum Kathleen-1 antibody assay (u nits/volume)Ordered By: Dr. Tristan on 07-10-2022 Kathleen-1 extractable nuclear Ab Qn (S) Not Reportable [facility] Serum Scl-70 extractable nuc lear antibody assay (units/volume)Ordered By: Dr. Tristan on 07-10-2022 SCL-70 extractable nuclear Ab Qn (S) Not Reportable [facility] Serum Rich extractable nucl ear antibody detectionOrdered By: Dr. Tristan on 07-10-2022 Rich extractable nuclear Ab Ql (S) Not Reportable [facility] Serum sscoe-0-yxiigbhkacy me asurementOrdered By: Dr. Tristan on 07-10-2022 Alpha 1 antitrypsin [Mass/Vol] 148 mg/dL 101-187 [facility] Comment on above: Performed at: [address] [id number] Director: Jarrod Sandoval PhD, Phone: [phone] Serum classic neutrophil cyt oplasmic antibody assay (units/volume)Ordered By: Dr. Tristan on 07-10-2022 Neutrophil cytoplasmic Ab.classic Qn (S) <1:20 titer Neg:<1:20 [facility] Serum hepatitis B virus surf akhil antibody IgG detectionOrdered By: Dr. Tristan on 07-10-2022 HBV surface IgG Ql (S) Non-Reactive [facility] Comment on above: Non Reactive: Incons istent with immunity less than <10 mIU/mL Reactive: Consistent with immunity greater than or equal to 10 mIU/mL Serum or plasma actin IgG an tibody assay (units/volume)Ordered By: Dr. Tristan on 07-10-2022 Actin IgG Qn 5 Units 0-19 [facility] Comment on above: Negative 0 - 19 Weak positive 20 - 30 Moderate to strong positive >30 Actin Antibodies are found in 52-85% of patients with autoimmune hepatitis or chronic active hepatitis and in 22% of patients with primary biliary cirrhosis. Serum or plasma ferritin julio surement (mass/volume)Ordered By: Dr. Tristan on 07-10-2022 Ferritin [Mass/Vol] 120 ng/mL 8-252 [facility] Serum perinuclear neutrophil cytoplasmic antibody titer by immunofluorescenceOrdered By: Dr. Tristan on 07-10-2022 Neutrophil cytoplasmic Ab.perinuclear IF (S) [Titer] <1:20 titer Neg:<1:20 [facility] Comment on above: The presence of posi tive fluorescence exhibiting P-ANCA orC-ANCA patterns alone is not specific for the diagnosis ofWegener's Granulomatosis (WG) or microscopic polyangiitis.Decisions about treatment should not be based solely onANCA IFA results. The [employer] ANCA [employer] Consensusrecommends follow up testing of positive sera with both NM-3 and MPO-ANCA enzyme immunoassays. As many as 5% serumsamples are positive only by EIA. Ref. AM J Clin Oawuis1854;111:507-513. Thin prep Papanicolaou smear with manual screeningOrdered By: Dr. Tristan on 07-10-2022 Thin prep Papanicolaou smear with manual screening 133 ug/dL 80-158 [facility] Comment on above: Detection Limit = 5P erformed at: [facility] [address] [id number] Director: Jarrod Sandoval PhD, Phone: [phone] at: - [facility] [address] [id number] Director: Pamela Davis MD, Phone: [phone] Absolute lymphocyte countOrd ered By: Dr. Tristan on 07-02-2022 Lymphocytes Auto (Unsp spec) [#/Vol] 0.75 10*3/uL 0.83-4.51 [facility] Basophil percentageOrdered B y: Dr. Tristan on 07-02-2022 Basophil percentage 0-5 SEEN /hpf 0-5 [facility] Basophils/100 WBC (Bld) 1.3 % 0-1 [facility] Bilirubin [Mass/Vol] 0.50 mg/dL 0.20-1.00 [facility] Comment on above: For patients on eltr ombopag therapy, use of Dimension Flushing TBIL is not recommended. Chloride [Moles/Vol] 100 mmol/L 98-107 [facility] Eosinophils/100 WBC (Bld) 3.4 % 0-5 [facility] Glucose [Mass/Vol] 101 mg/dL 74-106 [facility] Comment on above: Fasting Glucose resu lt from 100 to 125 mg/dL suggests IMPAIRED HOMEOSTASIS per A.D.A. criteria. Neutrophils (Bld) [#/Vol] 2.4 10*3/uL 2.0-7.7 [facility] Neutrophils/100 WBC (Bld) 63.0 % 47-70 [facility] Potassium [Moles/Vol] 4.2 mmol/L 3.5-5.1 [facility] Protein [Mass/Vol] 7.2 g/dL 6.4-8.2 [facility] Sodium [Moles/Vol] 133 mmol/L 136-145 [facility] WBC (Bld) [#/Vol] 3.8 10*3/uL 4.4-11.0 [facility] Bilirubin Test strip Ql (U)O rdered By: Dr. Tristan on 07-02-2022 Bilirubin Ql (U) Negative Negative [facility] Blood erythrocytes count (nu mber/volume)Ordered By: Dr. Tristan on 07-02-2022 RBC (Bld) [#/Vol] 4.48 10*6/uL 4.2-5.4 [facility] Blood hemoglobin measurement (mass/volume)Ordered By: Dr. Tristan on 07-02-2022 Hemoglobin (Bld) [Mass/Vol] 13.9 g/dL 12.0-15. 0 [facility] Blood lymphocytes/100 leukoc ytesOrdered By: Dr. Tristan on 07-02-2022 Lymphocytes/100 WBC (Bld) 19.7 % 19-41 [facility] Blood monocytes/100 leukocyt esOrdered By: Dr. Trsitan on 07-02-2022 Monocytes/100 WBC (Bld) 12.1 % 0-10 [facility] Blood platelet mean volumeOr dered By: Dr. Tristan on 07-02-2022 Platelet mean volume (Bld) [Entitic vol] 11.0 fL 6.2-12.0 [facility] Determination of erythrocyte mean corpuscular volume (MCV)Ordered By: Dr. Tristan on 07-02-2022 MCV (RBC) [Entitic vol] 97.5 fL 81-99 [facility] Hematocrit Auto (Bld) [Volum e fraction]Ordered By: Dr. Tristan on 07-02-2022 Hematocrit (Bld) [Volume fraction] 43.7 % 37-47 [facility] Ketones Test strip Ql (U)Ord ered By: Dr. Tristan on 07-02-2022 Ketones Ql (U) Negative Negative [facility] Laboratory - Chemistry and C hemistry - challengeOrdered By: Dr. Tristan on 07-02-2022 ALP [Catalytic activity/Vol] 236 U/L 45-117 [facility] ALT [Catalytic activity/Vol] 61 U/L 13-56 [facility] Amylase [Catalytic activity/Vol] 614 U/L 5-55 [facility] CO2 [Moles/Vol] 27.0 mmol/L 21.0-32.0 [facility] Globulin (S) [Mass/Vol] 3.4 g/dL 2.2-4.2 [facility] Urea nitrogen/Creatinine [Mass ratio] 32.7 mg/mg 10-20 [facility] - Hematology and Cell countsOrdered By: Dr. Tristan on 07-02-2022 Erythrocyte distribution width (RBC) [Entitic vol] 46.9 fL 35.1-43.9 [facility] Erythrocyte distribution width (RBC) [Ratio] 13.0 % 11.6-14.6 [facility] Immature granulocytes/100 WBC (Bld) 0.500 % 0.0-0.9 [facility] Comment on above: IG% - Immature Granu locytes (promyelocytes, myelocytes and metamyelocytes) > 1% indicates that a LEFT SHIFT is Present. MCH (RBC) [Entitic mass] 31.0 pg 27.0-32.0 [facility] Nucleated RBC/100 WBC (Bld) [Ratio] 0 % 0-5 [facility] MCHC Auto (RBC) [Mass/Vol]Or dered By: Dr. Tristan on 07-02-2022 MCHC (RBC) [Mass/Vol] 31.8 g/dL 32-36 [facility] Mucus LM Ql (Urine sed)Order ed By: Dr. Tristan on 07-02-2022 Mucus Ql (Urine sed) 0 SEEN /hpf [facility] Nitrite Test strip Ql (U)Ord ered By: Dr. Tristan on 07-02-2022 Nitrite Ql (U) Negative Negative [facility] No Panel InformationOrdered By: Dr. Tristan on 07-02-2022 Estimated GFR (MDRD) Amer 104 mL/min >60 [facility] Comment on above: GFR Calc Estimated GFR (MDRD) Non-Af Amer 86 mL/min >60 [facility] Comment on above: Non- GFR Calc Platelets bldOrdered By: Dr. Tristan on 07-02-2022 Platelets (Bld) [#/Vol] 258 10*3/uL 150-450 [facility] Protein Test strip Ql (U)Ord ered By: Dr. Tristan on 07-02-2022 Protein Ql (U) Negative Negative [facility] Serum or plasma albumin jese urement (mass/volume)Ordered By: Dr. Tristan on 07-02-2022 Albumin [Mass/Vol] 3.8 g/dL 3.2-5.0 [facility] Serum or plasma albumin/glob ulin mass ratioOrdered By: Dr. Tristan on 07-02-2022 Albumin/Globulin [Mass ratio] 1.1 {ratio} 0.9-2.4 [facility] Serum or plasma calcium jese urement (mass/volume)Ordered By: Dr. Tristan on 07-02-2022 Calcium [Mass/Vol] 9.6 mg/dL 8.5-10.1 [facility] Serum or plasma creatinine m easurement (mass/volume)Ordered By: Dr. Tristan on 07-02-2022 Creatinine [Mass/Vol] 0.70 mg/dL 0.55-1.02 [facility] Comment on above: The validity of the calculated GFR & GFRAA in patients over 70 years has not been determined. Clinical correlation is essential. Serum or plasma urea nitroge n measurement (mass/volume)Ordered By: Dr. Tristan on 07-02-2022 Urea nitrogen [Mass/Vol] 23 mg/dL 7-18 [facility] Squamous epithelial cells de tection in urine sediment by light microscopyOrdered By: Dr. Tristan on 07-02-2022 Epithelial cells.squamous LM Ql (Urine sed) 0-5 SEEN /hpf 5-10 [facility] Thin prep Papanicolaou smear with manual screeningOrdered By: Dr. Tristan on 07-02-2022 Thin prep Papanicolaou smear with manual screening 67 U/L 15-37 [facility] Thin prep Papanicolaou smear with manual screening 6 5-15 [facility] Urine blood detectionOrdered By: Dr. Tristan on 07-02-2022 RBC Ql (U) Negative Negative [facility] RBC Ql (U) 0 SEEN /hpf 0-5 [facility] Urine clarityOrdered By: Dr. Tristan on 07-02-2022 Clarity (U) Clear Clear [facility] Urine color determinationOrd ered By: Dr. Tristan on 07-02-2022 Color (U) Yellow Yellow [facility] Urine glucose detectionOrder ed By: Dr. Tristan on 07-02-2022 Glucose Ql (U) Normal mg/dl Normal [facility] Urine leukocyte esterase det ection by dipstickOrdered By: Dr. Tristan on 07-02-2022 Leukocyte esterase Test strip Ql (U) 25 /ul Negative [facility] Urine pHOrdered By: Dr. Tova seals on 07-02-2022 pH (U) 7.0 [pH] 5.0 - 8.0 [facility] Urine sediment bacteria coun t by microscopy (number/high power field)Ordered By: Dr. Tristan on 07-02-2022 Bacteria LM.HPF (Urine sed) [#/Area] 0 /[HPF] None Seen [facility] Urine specific gravity measu rementOrdered By: Dr. Tristan on 07-02-2022 Specific gravity (U) [Rel density] 1.010 1.002-1.030 [facility] Urobilinogen Auto test strip Ql (U)Ordered By: Dr. Tristan on 07-02-2022 Urobilinogen Ql (U) Normal mg/dl Normal [facility] Absolute lymphocyte counton 12-04-2021 Lymphocytes Auto (Unsp spec) [#/Vol] 0.82 10*3/uL 0.83-4.51 [facility] Work Phone: Basophil percentageon 2021 Basophils/100 WBC (Bld) 1.2 % 0-1 [facility] Work Phone: Bilirubin [Mass/Vol] 0.40 mg/dL 0.20-1.00 [facility] Work Phone: Comment on above: For patients on eltr ombopag therapy, use of Dimension Flushing TBIL is not recommended. Chloride [Moles/Vol] 102 mmol/L 98-107 [facility] Work Phone: Eosinophils/100 WBC (Bld) 1.7 % 0-5 [facility] Work Phone: Glucose [Mass/Vol] 92 mg/dL 74-106 [facility] Work Phone: Neutrophils (Bld) [#/Vol] 2.9 10*3/uL 2.0-7.7 [facility] Work Phone: Neutrophils/100 WBC (Bld) 67.3 % 47-70 [facility] Work Phone: Potassium [Moles/Vol] 4.4 mmol/L 3.5-5.1 [facility] Work Phone: Protein [Mass/Vol] 7.0 g/dL 6.4-8.2 [facility] Work Phone: Sodium [Moles/Vol] 136 mmol/L 136-145 [facility] Work Phone: WBC (Bld) [#/Vol] 4.2 10*3/uL 4.4-11.0 [facility] Work Phone: Blood erythrocytes count (nu mber/volume)on 12-04-2021 RBC (Bld) [#/Vol] 4.17 10*6/uL 4.2-5.4 [facility] Work Phone: Blood hemoglobin measurement (mass/volume)on 12-04-2021 Hemoglobin (Bld) [Mass/Vol] 13.0 g/dL 12.0-15. 0 [facility] Work Phone: Blood lymphocytes/100 leukoc yteson 12-04-2021 Lymphocytes/100 WBC (Bld) 19.4 % 19-41 [facility] Work Phone: Blood monocytes/100 leukocyt eson 12-04-2021 Monocytes/100 WBC (Bld) 10.2 % 0-10 [facility] Work Phone: Blood platelet mean volumeon 12-04-2021 Platelet mean volume (Bld) [Entitic vol] 11.1 fL 6.2-12.0 [facility] Work Phone: [phone] Determination of erythrocyte mean corpuscular volume (MCV)on 12-04-2021 MCV (RBC) [Entitic vol] 98.1 fL 81-99 [facility] Work Phone: Hematocrit Auto (Bld) [Volum e fraction]on 12-04-2021 Hematocrit (Bld) [Volume fraction] 40.9 % 37-47 [facility] Work Phone: Laboratory - Chemistry and C hemistry - challengeon 12-04-2021 ALP [Catalytic activity/Vol] 227 U/L 45-117 [facility] Work Phone: ALT [Catalytic activity/Vol] 38 U/L 13-56 [facility] Work Phone: Amylase [Catalytic activity/Vol] 573 U/L 5-55 [facility] Work Phone: [phone] CO2 [Moles/Vol] 28.0 mmol/L 21.0-32.0 [facility] Work Phone: [phone] Globulin (S) [Mass/Vol] 3.3 g/dL 2.2-4.2 [facility] Work Phone: [phone] Urea nitrogen/Creatinine [Mass ratio] 34.4 mg/mg 10-20 [facility] Work Phone: [phone] Laboratory - Hematology and Cell countson 12-04-2021 Erythrocyte distribution width (RBC) [Entitic vol] 46.6 fL 35.1-43.9 [facility] Work Phone: [phone] Erythrocyte distribution width (RBC) [Ratio] 13.1 % 11.6-14.6 [facility] Work Phone: [phone] Immature granulocytes/100 WBC (Bld) 0.200 % 0.0-0.9 [facility] Work Phone: Comment on above: IG% - Immature Granu locytes (promyelocytes, myelocytes and metamyelocytes) > 1% indicates that a LEFT SHIFT is Present. MCH (RBC) [Entitic mass] 31.2 pg 27.0-32.0 [facility] Work Phone: [phone] Nucleated RBC/100 WBC (Bld) [Ratio] 0 % 0-5 [facility] Work Phone: [phone] MCHC Auto (RBC) [Mass/Vol]on 12-04-2021 MCHC (RBC) [Mass/Vol] 31.8 g/dL 32-36 [facility] Work Phone: [phone] No Panel Informationon 12-04 Estimated GFR (MDRD) Amer 111 mL/min >60 [facility] Work Phone: Comment on above: GFR Calc Estimated GFR (MDRD) Non-Af Amer 92 mL/min >60 [facility] Work Phone: Comment on above: Non- GFR Calc Platelets bldon 12-04-2021 Platelets (Bld) [#/Vol] 226 10*3/uL 150-450 [facility] Work Phone: Serum or plasma albumin jese urement (mass/volume)on 12-04-2021 Albumin [Mass/Vol] 3.7 g/dL 3.2-5.0 [facility] Work Phone: Serum or plasma albumin/glob ulin mass ratioon 12-04-2021 Albumin/Globulin [Mass ratio] 1.1 {ratio} 0.9-2.4 [facility] Work Phone: Serum or plasma calcium jese urement (mass/volume)on 12-04-2021 Calcium [Mass/Vol] 9.6 mg/dL 8.5-10.1 [facility] Work Phone: Serum or plasma creatinine m easurement (mass/volume)on 12-04-2021 Creatinine [Mass/Vol] 0.67 mg/dL 0.55-1.02 [facility] Work Phone: Comment on above: The validity of the calculated GFR & GFRAA in patients over 70 years has not been determined. Clinical correlation is essential. Serum or plasma urea nitroge n measurement (mass/volume)on 12-04-2021 Urea nitrogen [Mass/Vol] 23 mg/dL 09-03 [facility] Work Phone: Thin prep Papanicolaou smear with manual screeningon 12-04-2021 Thin prep Papanicolaou smear with manual screening 36 U/L 15-37 [facility] Work Phone: Thin prep Papanicolaou smear with manual screening 6 5-15 [facility] Work Phone: No Panel Informationon 09-12 Anti-Nuclear Antibody Screen Negative Negative [facility] Work Phone: Ceruloplasmin 25.5 mg/dL 19.0-39.0 [facility] Work Phone: Thyroid Stimulating Hormone (TSH) 0.77 uIU/mL 0.358-3.74 [facility] Work Phone: Serum [id number] me asurementon 09-12-2021 Alpha 1 antitrypsin [Mass/Vol] 135 mg/dL 101-187 [facility] Work Phone: Comment on above: Performed at: [id number] [place] [id number] Director: Jarrod Sandoval PhD, Phone: [phone] Serum or plasma actin IgG an tibody assay (units/volume)on 09-12-2021 Actin IgG Qn 6 Units 0-19 [facility] Work Phone: Comment on above: Negative 0 - 19 Weak positive 20 - 30 Moderate to strong positive >30 Actin Antibodies are found in 52-85% of patients with autoimmune hepatitis or chronic active hepatitis and in 22% of patients with primary biliary cirrhosis. Serum or plasma ferritin julio surement (mass/volume)on 09-12-2021 Ferritin [Mass/Vol] 113 ng/mL 8-252 [facility] Work Phone: Thin prep Papanicolaou smear with manual screeningon 09-12-2021 Thin prep Papanicolaou smear with manual screening 110 ug/dL 80-158 [facility] Work Phone: Comment on above: Detection Limit = 5P erformed at: [employer] [facility] [id number] [place], [place] [id number] Director: Jarrod Sandoval PhD, Phone: [phone] at: - [facility] [address] [id number] Director: Pamela Davis MD, Phone: [phone] Absolute lymphocyte counton 09-06-2021 Lymphocytes Auto (Unsp spec) [#/Vol] 0.90 10*3/uL 0.83-4.51 [facility] Work Phone: Basophil percentageon 2021 Basophils/100 WBC (Bld) 0.7 % 0-1 [facility] Work Phone: Bilirubin [Mass/Vol] 0.70 mg/dL 0.20-1.00 [facility] Work Phone: Comment on above: For patients on eltr ombopag therapy, use of Dimension Flushing TBIL is not recommended. Chloride [Moles/Vol] 99 mmol/L 98-107 [facility] Work Phone: Eosinophils/100 WBC (Bld) 3.2 % 0-5 [facility] Work Phone: Glucose [Mass/Vol] 97 mg/dL 74-106 [facility] Work Phone: Neutrophils (Bld) [#/Vol] 2.5 10*3/uL 2.0-7.7 [facility] Work Phone: Neutrophils/100 WBC (Bld) 62.3 % 47-70 [facility] Work Phone: Potassium [Moles/Vol] 4.4 mmol/L 3.5-5.1 [facility] Work Phone: Protein [Mass/Vol] 7.3 g/dL 6.4-8.2 [place] [facility] Work Phone: Sodium [Moles/Vol] 133 mmol/L 136-145 [facility] Work Phone: WBC (Bld) [#/Vol] 4.0 10*3/uL 4.4-11.0 [facility] Work Phone: Blood erythrocytes count (nu mber/volume)on 09-06-2021 RBC (Bld) [#/Vol] 4.47 10*6/uL 4.2-5.4 [facility] Work Phone: Blood hemoglobin measurement (mass/volume)on 09-06-2021 Hemoglobin (Bld) [Mass/Vol] 14.1 g/dL 12.0-15. 0 [facility] Work Phone: Blood lymphocytes/100 leukoc yteson 09-06-2021 Lymphocytes/100 WBC (Bld) 22.4 % 19-41 [facility] Work Phone: Blood monocytes/100 leukocyt eson 09-06-2021 Monocytes/100 WBC (Bld) 11.2 % 0-10 [facility] Work Phone: Blood platelet mean volumeon 09-06-2021 Platelet mean volume (Bld) [Entitic vol] 10.6 fL 6.2-12.0 [facility] Work Phone: [phone] Determination of erythrocyte mean corpuscular volume (MCV)on 09-06-2021 MCV (RBC) [Entitic vol] 95.1 fL 81-99 [facility] Work Phone: [phone] Hematocrit Auto (Bld) [Volum e fraction]on 09-06-2021 Hematocrit (Bld) [Volume fraction] 42.5 % 37-47 [facility] Work Phone: [phone] Laboratory - Chemistry and C hemistry - challengeon 09-06-2021 ALP [Catalytic activity/Vol] 233 U/L 45-117 [facility] Work Phone: ALT [Catalytic activity/Vol] 99 U/L 13-56 [facility] Work Phone: Amylase [Catalytic activity/Vol] 561 U/L 5-55 [facility] Work Phone: CO2 [Moles/Vol] 28.0 mmol/L 21.0-32.0 [facility] Work Phone: [phone] Globulin (S) [Mass/Vol] 3.5 g/dL 2.2-4.2 [facility] Work Phone: Magnesium [Mass/Vol] 2.2 mg/dL 1.6-2.6 [facility] Work Phone: Urea nitrogen/Creatinine [Mass ratio] 31.8 mg/mg 10-20 [facility] Work Phone: [phone] Laboratory - Hematology and Cell countson 09-06-2021 Erythrocyte distribution width (RBC) [Entitic vol] 46.8 fL 35.1-43.9 [facility] Work Phone: Erythrocyte distribution width (RBC) [Ratio] 13.2 % 11.6-14.6 [facility] Work Phone: Immature granulocytes/100 WBC (Bld) 0.200 % 0.0-0.9 [facility] Work Phone: Comment on above: IG% - Immature Granu locytes (promyelocytes, myelocytes and metamyelocytes) > 1% indicates that a LEFT SHIFT is Present. MCH (RBC) [Entitic mass] 31.5 pg 27.0-32.0 [facility] Work Phone: Nucleated RBC/100 WBC (Bld) [Ratio] 0 % 0-5 [facility] Work Phone: MCHC Auto (RBC) [Mass/Vol]on 09-06-2021 MCHC (RBC) [Mass/Vol] 33.2 g/dL 32-36 [facility] Work Phone: No Panel Informationon 09-06 Estimated GFR (MDRD) Amer 106 mL/min >60 [facility] Work Phone: Comment on above: GFR Calc Estimated GFR (MDRD) Non-Af Amer 88 mL/min >60 [facility] Work Phone: Comment on above: Non- GFR Calc Platelets bldon 09-06-2021 Platelets (Bld) [#/Vol] 230 10*3/uL 150-450 [facility] Work Phone: Serum or plasma albumin jese urement (mass/volume)on 09-06-2021 Albumin [Mass/Vol] 3.8 g/dL 3.2-5.0 [facility] Work Phone: Serum or plasma albumin/glob ulin mass ratioon 09-06-2021 Albumin/Globulin [Mass ratio] 1.1 {ratio} 0.9-2.4 [facility] Work Phone: Serum or plasma calcium jese urement (mass/volume)on 09-06-2021 Calcium [Mass/Vol] 9.5 mg/dL 8.5-10.1 [facility] Work Phone: Serum or plasma creatinine m easurement (mass/volume)on 09-06-2021 Creatinine [Mass/Vol] 0.69 mg/dL 0.55-1.02 [facility] Work Phone: Comment on above: The validity of the calculated GFR & GFRAA in patients over 70 years has not been determined. Clinical correlation is essential. Serum or plasma urea nitroge n measurement (mass/volume)on 09-06-2021 Urea nitrogen [Mass/Vol] 22 mg/dL 7-18 [facility] Work Phone: Thin prep Papanicolaou smear with manual screeningon 09-06-2021 Thin prep Papanicolaou smear with manual screening 78 U/L 15-37 [facility] Work Phone: Thin prep Papanicolaou smear with manual screening 6 5-15 [facility] Work Phone: Absolute lymphocyte counton 05-18-2021 Lymphocytes Auto (Unsp spec) [#/Vol] 0.72 10*3/uL 0.83-4.51 [facility] Work Phone: Basophil percentageon 2021 Basophil percentage 0 SEEN /hpf 0-5 [facility] Work Phone: Basophils/100 WBC (Bld) 2.0 % 0-1 [facility] Work Phone: Bilirubin [Mass/Vol] 0.50 mg/dL 0.20-1.00 [facility] Work Phone: Comment on above: For patients on eltr ombopag therapy, use of Dimension Flushing TBIL is not recommended. Chloride [Moles/Vol] 102 mmol/L 98-107 [facility] Work Phone: Eosinophils/100 WBC (Bld) 3.4 % 0-5 [facility] Work Phone: Glucose [Mass/Vol] 102 mg/dL 74-106 [facility] Work Phone: [phone] Comment on above: Fasting Glucose resu lt from 100 to 125 mg/dL suggests IMPAIRED HOMEOSTASIS per A.D.A. criteria. Neutrophils (Bld) [#/Vol] 2.3 10*3/uL 2.0-7.7 [facility] Work Phone: [phone] Neutrophils/100 WBC (Bld) 64.1 % 47-70 [facility] Work Phone: Potassium [Moles/Vol] 3.7 mmol/L 3.5-5.1 [facility] Work Phone: [phone] Protein [Mass/Vol] 7.4 g/dL 6.4-8.2 [facility] Work Phone: [phone] Sodium [Moles/Vol] 135 mmol/L 136-145 [facility] Work Phone: [phone] WBC (Bld) [#/Vol] 3.5 10*3/uL 4.4-11.0 [facility] Work Phone: [phone] Bilirubin Test strip Ql (U)o n 05-18-2021 Bilirubin Ql (U) Negative Negative [facility] Work Phone: [phone] Blood erythrocytes count (nu mber/volume)on 05-18-2021 RBC (Bld) [#/Vol] 4.47 10*6/uL 4.2-5.4 [facility] Work Phone: [phone] Blood hemoglobin measurement (mass/volume)on 05-18-2021 Hemoglobin (Bld) [Mass/Vol] 14.2 g/dL 12.0-15. 0 [facility] Work Phone: Blood lymphocytes/100 leukoc yteson 05-18-2021 Lymphocytes/100 WBC (Bld) 20.3 % 19-41 [facility] Work Phone: Blood monocytes/100 leukocyt eson 05-18-2021 Monocytes/100 WBC (Bld) 9.9 % 0-10 [facility] Work Phone: Blood platelet mean volumeon 05-18-2021 Platelet mean volume (Bld) [Entitic vol] 10.5 fL 6.2-12.0 [facility] Work Phone: Determination of erythrocyte mean corpuscular volume (MCV)on 05-18-2021 MCV (RBC) [Entitic vol] 96.0 fL 81-99 [facility] Work Phone: Hematocrit Auto (Bld) [Volum e fraction]on 05-18-2021 Hematocrit (Bld) [Volume fraction] 42.9 % 37-47 [facility] Work Phone: Ketones Test strip Ql (U)on 05-18-2021 Ketones Ql (U) Negative Negative [facility] Work Phone: Laboratory - Chemistry and C hemistry - challengeon 05-18-2021 ALP [Catalytic activity/Vol] 162 U/L 45-117 [facility] Work Phone: [phone] ALT [Catalytic activity/Vol] 36 U/L 13-56 [facility] Work Phone: [phone] Amylase [Catalytic activity/Vol] 308 U/L 5-55 [facility] Work Phone: [phone] CO2 [Moles/Vol] 25.0 mmol/L 21.0-32.0 [facility] Work Phone: [phone] Globulin (S) [Mass/Vol] 3.5 g/dL 2.2-4.2 [facility] Work Phone: [phone] Magnesium [Mass/Vol] 2.2 mg/dL 1.6-2.6 [facility] Work Phone: [phone] Urea nitrogen/Creatinine [Mass ratio] 25.8 mg/mg 10-20 [facility] Work Phone: [phone] Laboratory - Hematology and Cell countson 05-18-2021 Erythrocyte distribution width (RBC) [Entitic vol] 45.0 fL 35.1-43.9 [facility] Work Phone: [phone] Erythrocyte distribution width (RBC) [Ratio] 12.6 % 11.6-14.6 [facility] Work Phone: Immature granulocytes/100 WBC (Bld) 0.300 % 0.0-0.9 [facility] Work Phone: Comment on above: IG% - Immature Granu locytes (promyelocytes, myelocytes and metamyelocytes) > 1% indicates that a LEFT SHIFT is Present. MCH (RBC) [Entitic mass] 31.8 pg 27.0-32.0 [facility] Work Phone: Nucleated RBC/100 WBC (Bld) [Ratio] 0 % 0-5 [facility] Work Phone: MCHC Auto (RBC) [Mass/Vol]on 05-18-2021 MCHC (RBC) [Mass/Vol] 33.1 g/dL 32-36 [facility] Work Phone: Mucus LM Ql (Urine sed)on Mucus Ql (Urine sed) 0 SEEN /hpf [facility] Work Phone: Nitrite Test strip Ql (U)on 05-18-2021 Nitrite Ql (U) Negative Negative [facility] Work Phone: No Panel Informationon 05-18 Estimated GFR (MDRD) Amer 105 mL/min >60 [facility] Work Phone: Comment on above: GFR Calc Estimated GFR (MDRD) Non-Af Amer 87 mL/min >60 [facility] Work Phone: Comment on above: Non- GFR Calc Thyroid Stimulating Hormone (TSH) 0.87 uIU/mL 0.358-3.74 [facility] Work Phone: Platelets bldon 05-18-2021 Platelets (Bld) [#/Vol] 246 10*3/uL 150-450 [facility] Work Phone: Protein Test strip Ql (U)on 05-18-2021 Protein Ql (U) Negative Negative [facility] Work Phone: Serum or plasma albumin jese urement (mass/volume)on 05-18-2021 Albumin [Mass/Vol] 3.9 g/dL 3.2-5.0 [facility] Work Phone: Serum or plasma albumin/glob ulin mass ratioon 05-18-2021 Albumin/Globulin [Mass ratio] 1.1 {ratio} 0.9-2.4 [facility] Work Phone: Serum or plasma calcium jese urement (mass/volume)on 05-18-2021 Calcium [Mass/Vol] 9.6 mg/dL 8.5-10.1 [facility] Work Phone: Serum or plasma creatinine m easurement (mass/volume)on 05-18-2021 Creatinine [Mass/Vol] 0.70 mg/dL 0.55-1.02 [facility] Work Phone: Comment on above: The validity of the calculated GFR & GFRAA in patients over 70 years has not been determined. Clinical correlation is essential. Serum or plasma urea nitroge n measurement (mass/volume)on 05-18-2021 Urea nitrogen [Mass/Vol] 18 mg/dL 7-18 [facility] Work Phone: Squamous epithelial cells de tection in urine sediment by light microscopyon 05-18-2021 Epithelial cells.squamous LM Ql (Urine sed) 0 SEEN /hpf 5-10 [facility] Work Phone: Thin prep Papanicolaou smear with manual screeningon 05-18-2021 Thin prep Papanicolaou smear with manual screening 26 U/L 15-37 [facility] Work Phone: Thin prep Papanicolaou smear with manual screening 8 5-15 [facility] Work Phone: Urine blood detectionon 04- RBC Ql (U) Negative Negative [facility] Work Phone: RBC Ql (U) 0 SEEN /hpf 0-5 [facility] Work Phone: Urine clarityon 05-18-2021 Clarity (U) Clear Clear [facility] Work Phone: Urine color determinationon 05-18-2021 Color (U) Yellow Yellow [facility] Work Phone: Urine glucose detectionon Glucose Ql (U) Normal mg/dl Normal [facility] Work Phone: Urine leukocyte esterase det ection by dipstickon 05-18-2021 Leukocyte esterase Test strip Ql (U) 25 /ul Negative [facility] Work Phone: Urine pHon 05-18-2021 pH (U) 8.0 [pH] 5.0 - 8.0 [facility] Work Phone: Urine sediment bacteria coun t by microscopy (number/high power field)on 05-18-2021 Bacteria LM.HPF (Urine sed) [#/Area] 0 /[HPF] None Seen [facility] Work Phone: Urine specific gravity measu rementon 05-18-2021 Specific gravity (U) [Rel density] 1.010 1.002-1.030 [facility] Work Phone: Urobilinogen Auto test strip Ql (U)on 05-18-2021 Urobilinogen Ql (U) Normal mg/dl Normal [facility] Work Phone: ANES Celestina 08-25-2019 ANES POST HNO ID: [id number] Author: Erick Posada Service: Anesthesiology Author Type: Anesthesiologist Type: Anesthesia PostOp Filed: 08/25/2019 3:46 PM Note Text: POST ANESTHESIA EVALUATION NOTE SERVICE DATE: 08/25/2019 SERVICE TIME: 1430 : 1945 Vitals: 08/25/19 1038 08/25/19 1322 Temp: 36.2 ?C (97.2 ?F) 37 ?C (98.6 ?F) 08/25/19 1322 08/25/19 1330 08/25/19 1345 08/25/19 1415 BP: 140/64 140/67 157/75 141/66 08/25/19 1130 08/25/19 1322 08/25/19 1330 08/25/19 1345 Pulse: 72 78 74 60 08/25/19 1322 08/25/19 1330 08/25/19 1345 08/25/19 1415 Resp: 15 21 24 20 08/25/19 1322 08/25/19 1330 08/25/19 1345 08/25/19 1415 SpO2: 98% 97% 98% 99% Validated Vital Signs: yes POST ANES STATUS: No apparent anesthetic complications. The patient is appropriately hydrated with stable respiratory and cardiovascular status. Patient has safe and adequate airway control. The patient has appropriate pain relief and no significant post operative nausea or vomiting. The patient has achieved baseline mental status. Further assessment by Anesthesia Service: None Other Remarks: SIGNATURE: Erick Posada MD PATIENT NAME: Shirley See DATE: August 25, 2019 TIME: 3:46 PM PAGER/CONTACT #: [phone] [facility] ANES PREOPon 08-25-2019 ANES PREOP HNO ID: [id number] Author: Erick Posada Service: Anesthesiology Author Type: Anesthesiologist Type: Anesthesia PreOp Filed: 08/25/2019 10:51 AM Note Text: ANESTHESIOLOGY DAY OF SURGERY NOTE SERVICE DATE: 08/25/2019 SERVICE TIME: 10:49 AM : 1945 Procedure(s) (LRB): ORIF DISTAL RADIUS THREE OR MORE FRAGMENTS (Right) Surgeon(s): Miguelito Wallace Estimated body mass index is 22.31 kg/m? as calculated from the following: Height as of this encounter: 162.6 cm (5' 4). Weight as of this encounter: 59 kg (130 lb). Most recent hematocrit and potassium results: No results found for this basename: HCT,HEMATOCRIT,K,POTA SSIUM ANES DOS/PREOP NOTE: Vitals: 08/25/19 1038 BP: 197/86 Pulse: 86 Resp: 16 Temp: 36.2 ?C (97.2 ?F) TempSrc: Temporal Artery SpO2: 98% Weight: 59 kg (130 lb) Height: 162.6 cm (5' 4) There is no problem list on file for this patient. No past medical history on file. PAST SURGICAL HISTORY Procedure Laterality Date - PAST SURGICAL HISTORY OF C-sections x 2 - REMOVAL OF TONSILS,<12 Y/O Tonsillectomy FAMILY HISTORY Problem Relation Age of Onset - other (CHF) Mother 87 - Cancer Father 51 malignant melanoma Social History: Social History Tobacco Use - Smoking status: Never Smoker - Smokeless tobacco: Never Used Substance Use Topics - Alcohol use: Yes Alcohol/week: 7.0 standard drinks Types: 7 Glasses of Wine (5oz) per week Frequency: 4 or more times a week Drinks per session: 1 or 2 - Drug use: Not Currently No current facility-administered medications on file prior to encounter. Current Outpatient Medications on File Prior to Encounter Medication Sig - ibuprofen (MOTRIN) 200 mg tablet Take 400 mg by mouth every 6 hours as needed for Pain. - calcium carbonate/vitamin D3 (CALCIUM 500 + D ORAL) Take 2 tablets by mouth once daily. Current Facility-Administered Medications Medication Dose Route Frequency Provider Last Rate Last Dose - lidocaine 10 mg/mL (1 %) 1-2 mg injection (XYLOCAINE) 0.1-0.2 mL INTRADERMAL PRN Jeannie (Pa) Vetovitz - lactated ringers infusion 5-30 mL/hr INTRAVENOUS CONTINUOUS Jeannie (Pa) Vetovitz - ceFAZolin 2 g in D5W 100 mL (ANCEF) 2 g INTRAVENOUS Pre-Op Once Jeannie (Pa) Vetovitz - midazolam (PF) 2 mg injection (VERSED) 2 mg INTRAVENOUS ONCE Tomi Wu Allergies: ALLERGIES No Known Allergies DOS EXAM: Adequate NPO Status: Yes Anesthetic Risks, Benefits, Alternatives, Personnel and Consent Discussed: Yes Patient agrees to proceed: Yes Previous Anesthesia: No history of adverse event Airway Assessment: MP 2; Neck ROM: Full ROM without neurologic symptoms; Airway Evaluation: No significant abnormalities Symptoms of Sleep Apnea: None Dentition: Teeth intact Additional Physical Exam: Lungs: Patient health status unchanged since recent history and physical. See history and physical for exam findings. Cardiac: Patient health status unchanged since recent history and physical. See history and physical for exam findings. Additional Pertinent Findings: N/A Blood Products: Not anticipated for this procedure Anesthetic Plan: Regional with general as back up Anesthetic Monitoring: Standard ASA Monitors Pain Management Plan: Parenteral or Oral ASA Class: 1 Other Medical Problems: None Chronic Beta Vincent medication administered within 24 hours: N/A I have interviewed and examined the patient. I have reviewed the medical record and/or the pre-anesthesia evaluation, pertinent labs, and test results. Significant changes in the patient's condition since the History and Physical, not otherwise documented in primary service progress notes: No This contains updated information obtained within 48 hours of Surgery/Procedure. SIGNATURE: Erick Posada MD PATIENT NAME: Shirley See DATE: August 25, 2019 TIME: 10:49 AM CSN: [id number] [facility] HISTORY PHYSICALon 0 HISTORY PHYSICAL HNO ID: [id number] Author: Jeannie Fine (Pa) Service: Orthopaedic Surgery Author Type: Physician [employer] Type: HANDP Filed: 08/25/2019 10:55 AM Note Text: Jeannie Fine PA-C ? Department of Orthopaedics Orthopaedics [address] [facility] [address] Dept: [phone] Dept ? ? August 16, 2019 ? ? CHIEF COMPLAINT: Fracture of the Right Wrist and right wrist fx, REF: [place] [facility] (xray 08-14-2019) ? She presents with right wrist pain following a fall in her yard 2 days ago. Her dog ran past her accidentally knocking her down, she fell out stretched wrist. Pain today is a 4 out of 10 dull aching. The patient is hygoa-bfye-giesxaxa. She denies any previous right hand or wrist injuries. ? ASSESSMENT: S52.531A Closed Colles' fracture of right radius, initial encounter (primary encounter diagnosis) S52.614A Closed nondisplaced fracture of styloid process of right ulna, initial encounter ? PLAN: Discussed surgical options with patient. Advised her that in my opinion it would be best to proceed with surgical intervention as it would provide her with the best outcome and the shortest recovery. She is reluctant as she is unsure if her insurance company would cover the surgery. Patient was provided with a diagnosis code and procedure code is advised to contact her insurance company. Asked her to please contact us in the next few days. ? ? Ms. Shirley See was advised as to contrast therapies and/or to take analgesics/anti-infla mmatories as needed and all contraindications were reviewed. ? OBJECTIVE: Ms. Shirley See is a pleasant 73 year old in no apparent distress. Gen:Ht 5' 4[stated[ (1.63m) Wt 140 lb (63.5kg) BMI 24.02 kg/(m2). nl development, non obese, no deformities ENT: Normocephalic, normal hearing, moist mucosa CV: Pulses:Radial= 2+ and symmetric, capillary refill < 2 secs, no peripheral edema/varicosities Skin: no rash, bruising or lesions. Good turgor. Psych: cooperative and appropriate, alert and oriented x 3, good mood and affect. Musculoskeletal: Right wrist splint is clean dry and intact, able to form a full fist and extend all digits, mild but appropriate swelling in the hand. Sensation is intact in the radial 3 digits. ? IMAGING: IMPRESSION: Acute intra-articular impacted fracture distal right radius. Nondisplaced fracture ulnar styloid process Roustabout: PSCB ? Transcribe Date/Time: Aug 14 2019 ?3:16P Dictated by : MAURISIO CARRASCO MD This examination was interpreted and the report reviewed and electronically signed by: MAURISIO CARRASCO MD on Aug 14 2019 ?3:17PM ?EST Results-Findings ? * * *Final Report* * * DATE OF EXAM: Aug 14 2019 ?2:59PM ? LDX ? 5273 ?- ?XR WRIST 4V PA/LAT/OBL/SCAPH RT ?/ PROCEDURE REASON: Polytrauma, critical, upper ext injury suspected ?? ? * * * * Physician Interpretation * * * * ?XR WRIST 4V PA/LAT/OBL/SCAPH RT HISTORY: ?73 years old Clinical information: ?Polytrauma, critical, upper ext injury suspected S/P fall with extended hand on wet grass. Rt. wrist inj./deformity. TECHNIQUE: Images: ?XR WRIST 4V PA/LAT/OBL/SCAPH RT Comparison: ?None. RESULT: Acute intra-articular impacted fracture distal right radius. Nondisplaced fracture ulnar styloid process No evidence of dislocation. Carpal bones appear intact. 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 ? Supporting Subjective Information Below: ? Past Medical History: PAST MEDICAL HISTORY History reviewed. No pertinent past medical history. Past Surgical History: PAST SURGICAL HISTORY PAST SURGICAL HISTORY Procedure Laterality Date - PAST SURGICAL HISTORY OF ? ? ? C-sections x 2 - REMOVAL OF TONSILS,<12 Y/O ? ? ? Tonsillectomy Family History: FAMILY HISTORY FAMILY HISTORY Problem Relation Age of Onset - other (CHF) Mother 87 - Cancer Father 51 ? malignant melanoma Social History: SOCIAL HISTORY Social History ? Tobacco Use - Smoking status: Never Smoker - Smokeless tobacco: Never Used Substance Use Topics - Alcohol use: Yes ? ? Alcohol/week: 7.0 standard drinks ? ? Types: 7 Glasses of Wine (5oz) per week ? ? Frequency: 4 or more times a week ? ? Drinks per session: 1 or 2 - Drug use: Not Currently Medications: CURRENT MEDICATIONS Current Outpatient Medications Medication Sig - calcium carbonate/vitamin D3 (CALCIUM 500 + D ORAL) Take 2 tablets by mouth once daily. - ibuprofen (MOTRIN) 200 mg tablet Take 400 mg by mouth every 6 hours as needed for Pain. - HYDROcodone-acetamino phen (NORCO) 5-325 mg per tablet Take 1 tablet by mouth every 6 hours as needed for Pain for up to 3 days. ? No current facility-administered medications for this visit. Allergies: Patient has no known allergies. ? ? ROS: General (negative for fatigue, malaise, weight loss/gain) HEENT (negative for headache, earache, recent vision changes, sinus pain, sore throat) Respiratory (no recent shortness of breath, hemoptysis) CV (negative for chest tightness, palpitations) Musculoskeletal (see HPI) Psych (no depression, anxiety) ? ? REFERRING PHYSICIAN: Ms. Shirley See was referred to me for consultation by the following physician. This consultation note will be sent to the following physician by either mail or electronic medical record. ? ER Staff [place] [phone] ? No primary care provider on file. No primary provider on file. ? This note was partially generated using [employer] voice recognition system, and there may be some incorrect words, spellings, and punctuation that were not noted in checking the note before saving. ? ? Jeannie Fine PA-C ? [facility] NURSING PROGon 08-25-2019 NURSING PROG HNO ID: [id number] Author: Fernanda (Rn) LÁZARO Anderson Service: Nursing Author Type: Registered Nurse Type: Nursing Progress Note Filed: 08/25/2019 1:38 PM Note Text: Nursing Progress Note Patient Name: Shirley See [facility] bedside talking with pt. VSS. This note was completed by: Fernanda Anderson RN [facility] NURSING PROG HNO ID: [id number] Author: Mirtha (Rn) LÁZARO Garcia Service: ? Author Type: Registered Nurse Type: Nursing Progress Note Filed: 08/25/2019 11:34 AM Note Text: Dr. Posada at bedside for Right axillary nerve block. RN at bedside, pt monitored throughout, BP 197/86 Pulse 86 Temp 36.2 ?C (97.2 ?F) (Temporal Artery) Resp 16 Ht 162.6 cm (5' 4) Wt 59 kg (130 lb) SpO2 98% BMI 22.31 kg/m? . Pt tolerated procedure without difficulty. [facility] OPERATIVE NOon 08-25-2019 OPERATIVE NO HNO ID: [id number] Author: Miguelito Wallace Service: Orthopaedic Surgery Author Type: Physician Type: Operative Report Filed: 08/26/2019 8:24 AM Note Text: OPERATIVE/PROCEDURE REPORT LOG ID: [id number] SURGERY/PROCEDURE DATE: 08/25/2019 INCISION/PROCEDURE START TIME: 11:52 AM INCISION CLOSE/PROCEDURE END TIME: 1:10 PM SURGEON(S)/PROCEDURAL IST(S) AND CELLAR PACKER(S): Surgeon(s) and Role: * Miguelito Wallace - Primary Physician [employer] Layer: Jeannie Fine (Pa) SURGERY/PROCEDURE(S): 1. Right wrist, open reduction and internal fixation, greater than 3 parts. ANESTHESIA: [facility] - Extremity Upper SURGERY/PROCEDURE DETAILS: This is a 73-year-old female who had a fall injuring her right wrist, resulting in a comminuted distal radius fracture. We reviewed the risks, benefits, alternatives and potential complications of both operative and nonoperative treatment. She understood and wished to pursue surgery with consent done. Regional block was performed by the anesthetic team. Supplemental anesthetic was then also given with the head and neck being controlled by the anesthesia provider. All bony landmarks were appropriately padded in standard fashion. The right upper extremity had a well-padded upper brachium tourniquet applied with cotton padding and set at 250 mmHg but not yet inflated. The right upper extremity was sterilely prepped and draped in standard fashion. An appropriate timeout was conducted and all in the room were in agreement, signed consent form was on the chart, images were available for viewing and implants were in the room with representation, mini fluoroscopic unit present as well. The upper extremity was then exsanguinated with an Esmarch bandage and the tourniquet was applied at 250 mmHg. Longitudinal incision was made over the FCR tendon with a 15 blade. Superficial skin bleeders were taken care of with bipolar electrocautery. I came down to the fascia overlying the tendon and split this. The tendon was retracted ulnarly to protect the palmar cutaneous branch of the median nerve. The sub-sheath was then incised with a 15 blade providing some hemorrhagic tissue. FPL was swept out of the way with finger dissection and a self-retaining weitLander was placed. There was significant comminution of the volar metaphysis and radial styloid. Pronator quadratus was taken off its radial edge with a 15 blade and the fibers were swept ulnarly. There was shortening on the radial styloid side and the brachial radialis tendon insertion was released to gain better control over length. There is significant comminution on the volar metaphysis with volar angulation. With manipulation of the fracture fragments with a dental pick, longitudinal traction and manual reduction, the overall bony alignment was significantly improved and a couple of the metaphyseal fragments were able to aguilar in to maintain some its radial height. I then selected a Synthes locking volar plate and positioned it accordingly. There is a bit of a difficult rotational component to her fracture. Thus, I elected to place all of the locking screws in the distal row controlling the distal metaphyseal fracture, taking a series of fluoroscopic images to make sure that all of these screws were appropriate and the plate was perfectly aligned. I was then able to reduce this segment to the shaft appropriately and secured it with a cortical screw in the oblong hole. Once I had radiographs from a fluoroscopic image her to confirm appropriate overall reduction, screw length and positioning the plate. I then placed the remaining 2 screws in the shaft 1 with a cortical in the most distal with a locking screw due to its close proximity to the next nearest previous drill hole. I took the wrist through full range of motion that showed no instability of the distal fragments. There is no click with DRUJ stress and motion The wrist were copiously irrigated. The tourniquet was taken down. The pronator quadratus was not able to be repaired. Skin edges were closely approximated the volar wrist incision with 3-0 Monocryl buried sutures. Final skin closure was completed with a running 3?0 Monocryl suture with Steri-Strips, Xeroform, sterile 4 x 4's, cotton padding and a well fashioned volar splint with a Ismael and light Akhil wrap. Sling was applied secondary to the nerve block. Patient was safely awoken without complication and transferred to the postanesthetic care unit in stable condition. PRE-OP/PRE-PROCEDURE DIAGNOSIS: Right wrist, distal radius fracture, intra-articular, comminuted. POST-OP/POST-PROCEDUR E DIAGNOSIS: Same as Preop ESTIMATED BLOOD LOSS: 30 mls SPECIMENS: None IMPLANTABLE DEVICES: Synthes distal locking plate and screws DRAINS: None COMPLICATIONS: None PARTICIPATION IN SURGERY/PROCEDURE: I/primary surgeon/proceduralist performed the procedure with assistance. No qualified resident/fellow was available. human services assistant was necessary in safe patient transport, application of the tourniquet, positioning and arm board application. Soft tissue retraction and manual manipulation and assistance while holding reduction during the tenuous plate application. Final skin closure was likewise completed by my bindery library technical assistant with splint application. SIGNATURE: Miguelito Wallace MD PATIENT NAME: Shirley See DATE: August 26, 2019 TIME: 8:19 AM PAGER/CONTACT #: [facility] PT EDon 08-25-2019 PT ED HNO ID: [id number] Author: Jf (Rn) LÁZARO Alaniz Service: ? Author Type: Registered Nurse Type: Patient Education Filed: 08/25/2019 10:30 AM Note Text: PRE OP LEARNING ASSESSMENT PROCEDURE/SURGERY: ORIF right wrist READINESS TO LEARN COGNITIVE ABILITY: Alert and oriented MOTIVATION TO LEARN: Interested FAMILY SUPPORT: High - Very involved in pt care PATIENT LEARNS BEST BY: Individual Instruction FACTORS AFFECTING LEARNING: None PHYSICAL LIMITATIONS AFFECTING LEARNING: None Electronically Signed By: Jf Alaniz RN In Department: [facility] SURGERY [facility] XR FLUOROSCOPYon 08-25-2019 XR FLUOROSCOPY * * *Final Report* * * DATE OF EXAM: Aug 25 2019 1:05PM [facility] [id number] - XR FLUOROSCOPY / PROCEDURE REASON: ORIF DISTAL RADIUS-RIGHT * * * * Physician Interpretation * * * * History: Distal radial fracture Findings: 4 fluoroscopic views submitted to confirm hardware placement. Please see detailed operative report. Fluoroscopic Radiation Summary: Plane A, Air Kerma: 51.7 mGy Dose Area Product (DAP): 0.0 mGy*cm^2 Fluoro time: 2:26 min:sec Roustabout: TRINI Transcribe Date/Time: Aug 25 2019 2:00P Dictated by : SEAN JULES MD This examination was interpreted and the report reviewed and electronically signed by: SEAN JULES MD on Aug 25 2019 2:01PM EST [id number] N [facility] HOSPon 08-17-2019 HOSP Patient:Leah See MRN: Height:5' 4(1.626 m) Weight:130 lb (58.968 kg) Outpatient Medications as of 08/25/19: calcium carbonate/vitamin D3 (CALCIUM 500 + D ORAL) ibuprofen (MOTRIN) 200 mg tablet Admission/Clinic Administered Medications as of 08/25/19: lidocaine 10 mg/mL (1 %) 1-2 mg injection (XYLOCAINE) lactated ringers infusion ceFAZolin 2 g in D5W 100 mL (ANCEF) Problem List: No problem list on file for this patient. Allergies: No Known Allergies Date Verified:08/25/19 Lab Values No results within the last 30 days for the following basenames: K,HCT Progress Notes ([facility]): Clary Salguero Ma 08/17/2019 10:11 AM Signed Patient called in today and would like to proceed with ORIF of right wrist on 08/25/2019. Please schedule post op appointments in [place]. COVID testing patient would like to have done on Friday08/23/[address] [place] pre op COVID testing order. Jeannie Fine PA-C 08/17/2019 11:29 AM Signed COVID test ordered. Erika Singer [facility] [place], [place] 08/17/2019 1:40 PM Signed Surgical request and post ops completed. Please schedule COVID testing. Mel Curran [facility] [place] [place] 08/17/2019 3:09 PM Signed Called and left message for patient to call to schedule the covid test. Please help schedule upon call back Maryellen Eli RN 08/18/2019 8:36 AM Signed Patient returned phone call. Covid testing scheduled for 08/20 at [place]. Katelyn Carter Ma 08/23/2019 8:21 AM Signed Patient calling extremely upset that she has not been told a time for her surgery. Advised patient multiple times the OR will contact her tomorrow with a time. Patient just kept repeating she did not think that was right and asked if this MA knew the time. Advised patient we are unaware of time until she is contacted. Clary Salguero Ma 08/23/2019 1:47 PM Signed Surgery has been scheduled as requested. Progress Notes ([facility]): Doreen Nix RN 08/16/2019 4:13 PM Signed AMB ROOMING INTAKE FLOWSHEET DATA Risk Screening Do you have concerns about personal safety or safety in the home?: No Pain Pain Level: 4 Pain Location: Wrist-Right Description: Aching Duration Amount of Time: 2 Duration Units: Days Frequency: Intermittent Intervention: Medication, Positioning, Splinting Patient presents with: Right Wrist - Fracture right wrist fx, REF: [place] [facility]: xray 08-14-2019 Pt. was working in her yard 2 days ago and her 2 dogs ran past and knocked her down. She went to [place] [facility] and was splinted. She has been taking ibuprofen 400 mg twice daily and Willis tab one at [facility] with relief. She is right hand dominant. Jeannie Fine PA-C 08/16/2019 4:13 PM Signed Jeannie Fine PA-C Department of Orthopaedics Orthopaedics [address] [facility] [address] Dept: [phone] Dept August 16, 2019 CHIEF COMPLAINT: Fracture of the Right Wrist and right wrist fx, REF: [place] [facility] (xray 08-14-2019) She presents with right wrist pain following a fall in her yard 2 days ago. Her dog ran past her accidentally knocking her down, she fell out stretched wrist. Pain today is a 4 out of 10 dull aching. The patient is [id number]. She denies any previous right hand or wrist injuries. ASSESSMENT: S52.531A Closed Colles' fracture of right radius, initial encounter (primary encounter diagnosis) S52.614A Closed nondisplaced fracture of styloid process of right ulna, initial encounter PLAN: Discussed surgical options with patient. Advised her that in my opinion it would be best to proceed with surgical intervention as it would provide her with the best outcome and the shortest recovery. She is reluctant as she is unsure if her insurance company would cover the surgery. Patient was provided with a diagnosis code and procedure code is advised to contact her insurance company. Asked her to please contact us in the next few days. Ms. Shirley See was advised as to contrast therapies and/or to take analgesics/anti-infla mmatories as needed and all contraindications were reviewed. OBJECTIVE: Ms. Shirley See is a pleasant 73 year old in no apparent distress. Gen:Ht 5' 4[stated[ (1.63m) Wt 140 lb (63.5kg) BMI 24.02 kg/(m2). nl development, non obese, no deformities ENT: Normocephalic, normal hearing, moist mucosa CV: Pulses:Radial= 2+ and symmetric, capillary refill < 2 secs, no peripheral edema/varicosities Skin: no rash, bruising or lesions. Good turgor. Psych: cooperative and appropriate, alert and oriented x 3, good mood and affect. Musculoskeletal: Right wrist splint is clean dry and intact, able to form a full fist and extend all digits, mild but appropriate swelling in the hand. Sensation is intact in the radial 3 digits. IMAGING: IMPRESSION: Acute intra-articular impacted fracture distal right radius. Nondisplaced fracture ulnar styloid process Roustabout: TRINI ? Transcribe Date/Time: Aug 14 2019 ?3:16P Dictated by : MAURISIO CARRASCO MD This examination was interpreted and the report reviewed and electronically signed by: MAURISIO CARRASCO MD on Aug 14 2019 ?3:17PM ?EST Results-Findings * * *Final Report* * * DATE OF EXAM: Aug 14 2019 ?2:59PM ? LDX ? 5273 ?- ?XR WRIST 4V PA/LAT/OBL/SCAPH RT ?/ PROCEDURE REASON: Polytrauma, critical, upper ext injury suspected ?? ? * * * * Physician Interpretation * * * * ?XR WRIST 4V PA/LAT/OBL/SCAPH RT HISTORY: ?73 years old Clinical information: ?Polytrauma, critical, upper ext injury suspected S/P fall with extended hand on wet grass. Rt. wrist inj./deformity. TECHNIQUE: Images: ?XR WRIST 4V PA/LAT/OBL/SCAPH RT Comparison: ?None. RESULT: Acute intra-articular impacted fracture distal right radius. Nondisplaced fracture ulnar styloid process No evidence of dislocation. Carpal bones appear intact. 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 Supporting Subjective Information Below: Past Medical History: History reviewed. No pertinent past medical history. Past Surgical History: PAST SURGICAL HISTORY Procedure Laterality Date - PAST SURGICAL HISTORY OF C-sections x 2 - REMOVAL OF TONSILS,<13 Y/O Tonsillectomy Family History: FAMILY HISTORY Problem Relation Age of Onset - other (CHF) Mother 87 - Cancer Father 51 malignant melanoma Social History: Social History Tobacco Use - Smoking status: Never Smoker - Smokeless tobacco: Never Used Substance Use Topics - Alcohol use: Yes Alcohol/week: 7.0 standard drinks Types: 7 Glasses of Wine (5oz) per week Frequency: 4 or more times a week Drinks per session: 1 or 2 - Drug use: Not Currently Medications: Current Outpatient Medications Medication Sig - calcium carbonate/vitamin D3 (CALCIUM 500 + D ORAL) Take 2 tablets by mouth once daily. - ibuprofen (MOTRIN) 200 mg tablet Take 400 mg by mouth every 6 hours as needed for Pain. - HYDROcodone-acetamino phen (NORCO) 5-325 mg per tablet Take 1 tablet by mouth every 6 hours as needed for Pain for up to 3 days. No current facility-administered medications for this visit. Allergies: Patient has no known allergies. ROS: General (negative for fatigue, malaise, weight loss/gain) HEENT (negative for headache, earache, recent vision changes, sinus pain, sore throat) Respiratory (no recent shortness of breath, hemoptysis) CV (negative for chest tightness, palpitations) Musculoskeletal (see HPI) Psych (no depression, anxiety) REFERRING PHYSICIAN: Ms. Shirley See was referred to me for consultation by the following physician. This consultation note will be sent to the following physician by either mail or electronic medical record. ER Staff [place] [id number] [facility] [address] No primary care provider on file. No primary provider on file. This note was partially generated using [employer] voice recognition system, and there may be some incorrect words, spellings, and punctuation that were not noted in checking the note before saving. Jeannie Fine PA-C [facility] Vital Signs Date Time Vital Sign Value Performing Clinician Calvin hollis 07-30-2022 15:41-0400 Body height 162.56 cm [facility] 07-03-2021 07:55-0400 Body temperature 98.4 [degF] Dr. Slaed Tristan Work Phone: [facility] Work Phone: 07-03-2021 07:55-0400 Diastolic blood pressure 70 mm[Hg] Dr. Slade Tristan Work Phone: [facility] Work Phone: 07-03-2021 07:55-0400 Heart rate 65 /min Dr. Slade Tristan Work Phone: [facility] Work Phone: 07-03-2021 07:55-0400 Respiratory rate 16 /min Dr. Slade Tristan Work Phone: [facility] Work Phone: 07-03-2021 07:55-0400 SaO2% (BldA) [Mass fraction] 99 % Dr. Slade Tristan Work Phone: [facility] Work Phone: 07-03-2021 07:55-0400 Systolic blood pressure 127 mm[Hg] Dr. Slade Tristan Work Phone: [facility] Work Phone: 07-03-2021 06:39-0400 Body height 162.[address] Slade Tristan Work Phone: [facility] Work Phone: 07-03-2021 06:39-0400 Body mass index (BMI) [Ratio] 22.3 kg/m2 Dr. Slade Tristan Work Phone: [facility] Work Phone: 07-03-2021 06:39-0400 Body weight 58.[address] Slade Tristan Work Phone: [facility] Work Phone: Encounters Encounter Date Encounter Type Care Provider Facility Start: 08-05-2024 ambulatory Slade Ferguson y:[facility] Start: 07-14-2024 End: 07-14-[address] Slade Tristan MD Work Phone: [facility] Work Phone: Start: 07-14-2024 End: 07-14-[address] Slade Tristan MD -Laboratory [facility] Start: 07-14-2024 End: 07-14-2024 ambulatory Slade Tristan Facility:[facility] Start: 01-14-2024 End: 01-14-2024 ambulatory Slade Tristan Facility:[facility] Start: 08-14-2023 End: 08-14-2023 ambulatory Slade Tristan Facility:[facility] Start: 02-11-2023 End: 02-11-2023 ambulatory [facility] Work Phone: Start: 02-11-2023 End: 02-11-2023 Patient encounter [facility] [place] Start: 07-31-2022 End: 07-31-2022 ambulatory [facility] Work Phone: Start: 07-31-2022 End: 07-31-2022 Patient encounter procedure [facility]-Ultrasound, [facility] Start: 07-30-2022 End: 07-30-2022 ambulatory [facility] Work Phone: Start: 07-30-2022 End: 07-30-2022 Patient encounter procedure [facility]-Outpatient Bone Densitometry Start: 07-10-2022 End: 07-10-2022 ambulatory [facility] Work Phone: Start: 07-10-2022 End: 07-10-2022 Patient encounter procedure [facility] Start: 07-02-2022 End: 07-02-2022 Patient encounter procedure [facility] Start: 12-04-2021 End: 12-04-2021 ambulatory [facility] Work Phone: Start: 12-04-2021 End: 12-04-2021 Patient encounter procedure [facility] Start: 09-12-2021 End: 09-12-2021 Patient encounter procedure [facility] Start: 09-06-2021 End: 09-06-[address] Slade Tristan Work Phone: [facility] Start: 07-03-2021 Non-patient / Non-visit Dr. Kathleen Tristan Work Phone: [facility] Start: 07-03-2021 End: 07-03-2021 Admission to same day surgery center Dr. Slade Tristan Work Phone: [facility]-Endoscopy Start: 06-01-2021 End: 06-01-[address] Slade Tristan Work Phone: [facility]-Ultrasound, [facility] Start: 05-25-2021 End: 05-25-[address] Slade Tristan Work Phone: [facility]-Outpatient Breast Imaging Start: 05-18-2021 End: 05-18-[address] Slade Tristan Work Phone: [facility] Procedures Date Procedure Procedure Detail Performing Clinician Start: 07-14-2024 Vitamin D, 25-hydrox y measurement Dr. Slade Tristan MD Work Phone: Comment on above: Vitamin D StatusDefi ciency: <20 ng/mL (50nmol/L)Insufficiency: 20-30 ng/mL (50-75 nmol/L)Sufficiency: 30-100 ng/mL (75-250 nmol/L)Toxicity: >100 ng/mL (>250 nmol/L) Start: 02-11-2023 Urine culture Start: 07-31-2022 CT of abdomen Start: 07-30-2022 Dual energy X-ray absorptiometry Start: 07-30-2022 Screening mammography Start: 06-01-[address] Slade Tristan Work Phone: Start: 05-25-2021 Screening mammography Sarahy Tristan Work Phone: Plan of Treatment Date Care Activity Detail Author Start: 07-03-2021 Colonoscopy flx dx w/collj spec when pfrmd DIAGNOSTIC COLONOSCOPY [facility] Work Phone: Patient referral [facility] Work Phone: Immunizations Immunization Date Immunization Notes Care Provider Fa cili 05-16-2020 Covid (Pfizer) Dr. Slade Bernardo nn Work Phone: [facility] 04-25-2020 Covid (Pfizer) Dr. Slade Bernardo nn Work Phone: [facility] 03-23-2013 tetanus and diphther ia toxoids, adsorbed, preservative free, for adult use (2 Lf of tetanus toxoid and 2 Lf of diphtheria toxoid) Dr. Sldae Tristan Work Phone: [facility] Payers Date Payer Category Payer Self-pay [id number] 2023 Medicare [id number] 2013 Medicare [id number] Medicare [id number] Unknown [id number] Unknown [id number] Unknown [id number] [id number] Unknown [id number] Social History Date Type Detail Facility [facility] Work Phone: Start: 06-29-2021 End: 06-29-2021 Tobacco smoking status NHIS Unknown if ever smoked [facility] Start: 1945 Sex Assigned At Female [facility] Start: 06-29-2021 Tobacco smoking stat us NHIS Never smoked tobacco (finding) [facility] Goals Date Patient Goal Desired Activity /State Mental Status Date Assessment Result Facility 07-03-2021 Cognitive function Voice/Name [facility] Work Phone: Evaluation note Note Date & Type Note Facility Evaluation note Diagnosis Onset Date Encounter for screening for malignant neoplasm of colon acute [facility] Work Phone: Evaluation note Note Date & Type Note Facility Evaluation note No assessment information availa ble [facility] Work Phone: Reason for referral (narrative) Note Date & Type Note Facility Reason for referral (narrative) No reason for referral information available [facility] Work Phone: Summary Purpose Family History No Family History Records FoundNo Family History Records Found Advance Directives No Advanced Directives Records Found Advance Directive Response Recorded Date/ Time Living Will No June 29, 2021 2 :58pm Power of Field Marketing Lead No June 29, 2021 2:58pm Advance Directive Response Recorded Date/ Time Living Will No June 29, 2021 1 :58pm Power of Field Marketing Lead No June 29, 2021 1:58pm Chief Complaint and Reason for Visit Chief Complaint SCREENING ELEVATED ENZYMES Reason for Visit Encounter for screen ing for malignant neoplasm of colon Chief Complaint SCREENING/OSTEO ELEVATED ALKALINE PHOSPHATASE Additional Source Comments INFORMATION SOURCE (unrecogn ized section and content) DATE CREATED AUTHOR 09/10/2019 [facility] DATE CREATED AUTHOR AUTHOR'S SABAS ATYOUSIF 08/05/2024 [facility] Goals (unrecognized section and content) Goals may be documented in a n alternate sectionGoals may be documented in an alternate sectionGoals may be documented in an alternate sectionGoals may be documented in an alternate sectionGoals may be documented in an alternate sectionGoals may be documented in an alternate section Care Teams (unrecognized sec tion and content) Team Status: Active Member Role Status Dates No Primary Care Physician Family Provider Active Dr. Slade Tristan MD Primary Care Provider Active Team Status: Inactive Member Role Status Dates Dr. Slade Tristan MD Primary Care Provider, Attend ing Provider Active Team Status: Active Member Role Status Dates Dr. Slade Tristan MD Primary Care Provider, Attend ing Provider Active Team Status: Active Member Role Status Dates Dr. Slade Tristan MD Primary Care Pr ovider, Attending Provider, Referring Provider Active Team Status: Inactive Member Role Status Dates Dr. Slade Tristan MD Primary Care Pr ovider, Attending Provider, Referring Provider Active Team Status: Inactive Member Role Status Dates Dr. Slade Tristan MD Primary Care Provider Active Start: July 14, 2024 End: July 14, 2024 Dr. Slade Tristan MD Attending Provider Active Start: July 14, 2024 End: July 14, 2024 Dr. Slade Tristan MD Referring Provider Active Start: July 14, 2024 End: July 14, 2024 FOR RECORDS PERTAINING TO PATIENTS WHO ARE OR HAVE BEEN ENROLLED IN A CHEMICAL DEPENDENCY/SUBSTANCEABUSE PROGRAM, SOME INFORMATION MAY BE OMITTED. This clinical summary was aggregated from multiple sources. Caution should be exercised in using it in the provision of clinical care. This summary normalizes information from multiple sources, and as a consequence, information in this document may materially change the coding, format and clinical context of patient data. In addition, data may be omitted in some cases. CLINICAL DECISIONS SHOULD BE BASED ON THE PRIMARY CLINICAL RECORDS. [employer] provides no warranty or guarantee of the accuracy or completeness of information in this document.
--- NOTE | 2024-08-05 14:30 | BD_ITS ---
PROCEDURE: DEXA BONE DENSITY STUDY 08/05/2024 REASON FOR EXAM: F, age 78 y/o . Postmenopausal. TECHNIQUE: DEXA BONE DENSITY STUDY COMPARISON: Prior study dated July 30, 2022. FINDINGS: BMD and T-SCORES Lumbar spine: 0.987 g/cm2, T-score 0.1 Levels: L1 through L4 Change from prior: Improved by 8.3%. Left femoral neck: 0.544 g/cm2, T-score -2.8 Femoral neck comparison data not recommended for monitoring change. Left total hip: 0.611 g/cm2, T-score -2.7 Change from prior: Loss of 4.9%. Right femoral neck: 0.586 g/cm2, T-score -2.4 Femoral neck comparison data not recommended for monitoring change. Right total hip: 0.653 g/cm2, T-score -2.4 Change from prior: Loss of 6.1%. The World Health Organization has defined the following categories based on bone density: Normal bone density: T-score equal to or greater than -1.0 Osteopenia: T-score between -1.0 and -2.5 Osteoporosis: T-score equal to or less than -2.5 The patient does meet the pharmacological treatment recommendations for prevention of osteoporosis. BD/Dexa Bone Density Study IMPRESSION: OSTEOPOROSIS. Recommend follow-up as clinically warranted. Reading Location: [place] [id number]
--- NOTE | 2024-08-05 15:00 | BI_ITS ---
EXAM: SCRN MAMM (CAD)W/SANDRA BILAT DATE: 08/05/2024 CLINICAL HISTORY: F, Age 78 y/o , SCREEN BREAST CANCER RISK ASSESSMENT: Na TECHNIQUE: Bilateral screening digital breast tomosynthesis with 2D and 3D images. Computer aided detection. COMPARISON: Prior exam(s) were compared FINDINGS: TISSUE DENSITY: The breast tissue is heterogeneously dense, which may obscure small masses. Bilateral Breast Mammographic Findings: No suspicious masses, calcifications or other abnormalities are identified. BI/SCRN MAMM (CAD)W/SANDRA BILAT IMPRESSION: No mammographic evidence of malignancy in either breast. OVERALL FINAL ASSESSMENT BI-RADS 1: NEGATIVE. RECOMMEND ANNUAL MAMMOGRAPHIC SCREENING. RECOMMENDATION: Routine annual follow-up in 1 Year A letter with findings and recommendations will be mailed to the patient. Reading Location: [id number]
== END | disposition home or self-care (01) ==
PROVIDERS: PCP Family Medicine; Referring Provider Family Medicine; Visit Provider Family Medicine
DX: Z12.31 Encounter for screening mammogram for malignant neoplasm of breast (principal); M81.0 Age-related osteoporosis without current pathological fracture; E04.1 Nontoxic single thyroid nodule
CPT/HCPCS: 76536; 77063; 77067; 77080

== ENCOUNTER → 2024-10-07 | Outpatient (CLI) | payer MEDICARE, SELFPAY ==
[2024-10-07 12:39] LABS: Hematocrit 39.3 % (37-47); Hemoglobin 13.4 g/dL (12.0-15.0); Immature Granulocytes Count 0.040 X10^3/uL (0.0-0.0); Mean Corp Hgb Conc 34.1 g/dL (32-36); Mean Corpuscular Volume 92.9 fL (81-99); Mean Platelet Vol. 10.7 fl (6.2-12.0); NRBC Flagged by Analyzer 0 % (0-5); Platelet Count 314 K/mm3 (150-450); RBC Distribution Width CV 11.8 % (11.6-14.6); RBC Distribution Width SD 39.6 fl (35.1-43.9); Red Blood Count 4.23 M/mm3 (4.2-5.4); White Blood Count 6.5 K/mm3 (4.4-11.0)
[2024-10-07 13:30] LABS: AST(SGOT) 25 U/L (<=31); Alanine Aminotransfer ALT/SGPT 24 U/L (<=34); Albumin, Serum 4.3 g/dL (3.4-4.8); Alkaline Phosphatase 139 U/L (35-104); Anion Gap 16 (5-15); BUN 11 mg/dL (4-19); BUN/Creat Ratio 17.6 RATIO (10-20); Calcium,Total 10.0 mg/dL (7.6-11.0); Carbon Dioxide 23.9 mmol/L (21.0-32.0); Chloride 96 mmol/L (98-108); Globulin 2.6 g/dL (2.2-4.2); Glucose 105 mg/dL (70-99); Potassium 3.7 mmol/L (3.3-5.1)
== END | disposition home or self-care (01) ==
LOC: MFPLAB 10:34
PROVIDERS: PCP Family Medicine; Referring Provider Family Medicine; Visit Provider Family Medicine
DX: I95.1 Orthostatic hypotension (principal)
CPT/HCPCS: 36415; 80053; 85025

== ENCOUNTER → 2024-12-21 | Outpatient (CLI) | payer MEDICARE, SELFPAY ==
--- NOTE | 2024-12-21 14:27 | RAD_ITS ---
PROCEDURE: RAD/L/S Spine w Bend Min 6 Vw
--- NOTE | 2024-12-21 14:27 | RAD_ITS ---
PROCEDURE: RAD/Hips B/L min 2 views w/ Pelvis
== END | disposition home or self-care (01) ==
LOC: MTRAD 14:27
PROVIDERS: PCP Family Medicine; Referring Provider Family Medicine; Visit Provider Family Medicine
DX: M25.559 Pain in unspecified hip (principal); M47.816 Spondylosis without myelopathy or radiculopathy, lumbar region
CPT/HCPCS: 72114; 73521

== ENCOUNTER → 2025-01-17 | Outpatient (CLI) | payer MEDICARE, SELFPAY ==
[2025-01-17 12:22] LABS: Hematocrit 42.2 % (37-47); Hemoglobin 13.9 g/dL (12.0-15.0); Immature Granulocytes Count 0.010 X10^3/uL (0.0-0.0); Mean Corp Hgb Conc 32.9 g/dL (32-36); Mean Corpuscular Volume 97.5 fL (81-99); Mean Platelet Vol. 10.5 fl (6.2-12.0); NRBC Flagged by Analyzer 0 % (0-5); Platelet Count 284 K/mm3 (150-450); RBC Distribution Width CV 13.6 % (11.6-14.6); RBC Distribution Width SD 49.6 fl (35.1-43.9); Red Blood Count 4.33 M/mm3 (4.2-5.4); White Blood Count 4.5 K/mm3 (4.4-11.0)
[2025-01-17 13:22] LABS: AST(SGOT) 48 U/L (<=31); Alanine Aminotransfer ALT/SGPT 61 U/L (<=34); Albumin, Serum 4.4 g/dL (3.4-4.8); Alkaline Phosphatase 231 U/L (35-104); Anion Gap 12 (5-15); BUN 20 mg/dL (4-19); BUN/Creat Ratio 30.7 RATIO (10-20); Calcium,Total 9.8 mg/dL (7.6-11.0); Carbon Dioxide 25.8 mmol/L (21.0-32.0); Chloride 99 mmol/L (98-108); Globulin 2.8 g/dL (2.2-4.2); Glucose 98 mg/dL (70-99); Potassium 4.3 mmol/L (3.3-5.1)
[2025-01-18 11:18] LABS: Hepatitis B Surface Antigen Nonreactive (Nonreactive); Hepatitis C Antibody Nonreactive (Nonreactive)
== END | disposition home or self-care (01) ==
LOC: MFPLAB 09:45
PROVIDERS: PCP Family Medicine; Visit Provider Family Medicine
DX: I95.1 Orthostatic hypotension (principal); R79.89 Other specified abnormal findings of blood chemistry
CPT/HCPCS: 36415; 80053; 85025; 86706; 86803; 87340

== ENCOUNTER → 2025-01-20 | Outpatient (CLI) | payer MEDICARE, SELFPAY ==
[2025-01-20 13:33] LABS: AST(SGOT) 43 U/L (<=31); Alanine Aminotransfer ALT/SGPT 53 U/L (<=34); Albumin, Serum 4.3 g/dL (3.4-4.8); Alkaline Phosphatase 225 U/L (35-104); Anion Gap 13 (5-15); BUN 19 mg/dL (4-19); BUN/Creat Ratio 29.1 RATIO (10-20); Calcium,Total 9.9 mg/dL (7.6-11.0); Carbon Dioxide 25.3 mmol/L (21.0-32.0); Chloride 101 mmol/L (98-108); Globulin 2.7 g/dL (2.2-4.2); Glucose 97 mg/dL (70-99); Potassium 4.0 mmol/L (3.3-5.1)
[2025-01-21 04:07] LABS: GGTP 581 IU/L (0-60)
== END | disposition home or self-care (01) ==
LOC: MFPLAB 10:07
PROVIDERS: PCP Family Medicine; Visit Provider Family Medicine
DX: R74.8 Abnormal levels of other serum enzymes (principal)
CPT/HCPCS: 36415; 80053; 82977